=== PATIENT | female | born 1950 | race Caucasian/White ===

== ENCOUNTER 2018-03-11 08:40 | Outpatient (CLI) | payer MEDICARE, BC | END 2018-03-11 08:41 | disposition home or self-care (01) | LOC: BICMAMMO 08:40 | PROVIDERS: ATTEND Internal Medicine Rheumatology | DX: Z13.820 Encounter for screening for osteoporosis (principal); M81.0 Age-related osteoporosis without current pathological fracture | CPT/HCPCS: 77080 ==

== ENCOUNTER 2018-03-28 10:13 | Outpatient (CLI) | payer MEDICARE, BC | END 2018-03-28 10:14 | disposition home or self-care (01) | LOC: BICRAD 10:13 | PROVIDERS: ATTEND Internal Medicine Rheumatology | DX: M17.11 Unilateral primary osteoarthritis, right knee (principal) ==

== ENCOUNTER 2018-06-04 20:54 | Emergency (ER) | payer MEDICARE, BC ==
--- NOTE | 2018-06-04 22:16 | RAD ---
ONE VIEW CHEST: 06/04/18 HISTORY: Low grade fever. Cough x2 weeks. COMPARISON: 09/07/14. FINDINGS: Stable hardware projecting over the spine. Stable rightward curvature of the thoracic spine. Atherosc lerosis of the aorta. Normal cardiac silhouette. Costophrenic angles are clear. Chronic changes in th e lung parenchyma without consolidation or mass. No pneumothorax. Stable left apical pleural thickeni ng. IMPRESSION: 1. Atherosclerosis. 2. No acute cardiopulmonary process. Chronic changes are noted. POS: [facility]
== END 2018-06-04 22:15 | disposition home or self-care (01) ==
LOC: ERS 20:54
DX: J20.9 Acute bronchitis, unspecified (principal); J45.909 Unspecified asthma, uncomplicated
CPT/HCPCS: 71045

== ENCOUNTER 2018-06-05 21:00 | Inpatient (IN) | payer MEDICARE, BC ==
[~2018-06-05 21:00] MED LIST: ISOVUE-370 76%-LOCM 1 ML ONE
[2018-06-05] MEDS ORDERED: methylPREDNISolone Sod Succ/PF 125 MG/2 ML VIAL ONE (21:32)
[2018-06-05] MEDS ORDERED: Water For Inject, Bacteriostat 30 ML ONE (21:32)
[2018-06-05] MEDS ORDERED: Cefepime 2 GM in Sodium Chloride 0.9% 100 ML IVPB SCH (21:45)
[2018-06-05 21:58] LABS: ALT (SGPT) 31 U/L (8-55); AST (SGOT) 52 U/L (5-34); Albumin 3.2 g/dL (3.4-4.8); Alkaline Phosphatase 126 U/L (40-150); Anion Gap 12 mmol/L (10-20); BUN (Urea Nitrogen) 6 mg/dL (9.8-20.1); Bilirubin, Total 3.6 mg/dL (0.2-1.2); Calc. Creatinine Clearance 0 mL/min (70-130); Calcium 8.4 mg/dL (7.8-10.44); Carbon Dioxide 22 mmol/L (23-31); Chloride 98 mmol/L (98-107); Estimated GFR-MDRD 83; Globulin 4.2 g/dL (2.4-3.5); Glucose 121 mg/dL (80-115); Potassium 4.1 mmol/L (3.5-5.1); Protein, Total 7.4 g/dL (6.0-8.3); Sodium 128 mmol/L (136-145)
[2018-06-05 22:00] LABS: #Basophils 0.1 thou/uL (0.0-0.2); #Eosinphils 0.3 thou/uL (0.0-0.7); #Lymphocytes 1.1 thou/uL (1.20-3.40); #Neutrophils 4.6 thou/uL (1.40-6.50); %Eosinophils 4.4 % (0.0-10.0); %Lymphocytes 15.3 % (21.0-51.0); %Monocytes 14.5 % (0.0-10.0); %Neutrophils 64.8 % (42.0-75.0); Hemoglobin 15.1 g/dL (12.0-16.0); Mean Corpuscular HGB CONC 34.5 g/dL (32.0-36.0); Mean Corpuscular Hemoglobin 34.6 pg (27.0-31.0); Mean Platelet Volume 7.8 fL (7.4-10.4); PLT Morphology Comment Appears Decreased; Platelet Count 87 thou/uL (130-400); RBC Distribution Width 13.7 % (11.5-14.5); Red Blood Cell (RBC) Count 4.35 mill/uL (4.20-5.40)
[2018-06-05 22:02] LABS: CKMB 2.2 ng/mL (0-6.6); Troponin I Less than 0.010 ng/mL (< 0.028)
--- NOTE | 2018-06-05 22:25 | RAD ---
CHEST ONE VIEW: History: Diagnosed with bronchitis last night. Pain. Comparison: 06-04-18 FINDINGS: Stable cardiac silhouette. Stable scoliosis. Chronic changes of the lung parenchyma, without consolid ation or mass. No pleural effusion or pneumothorax. Stable thickening of the right apical pleura. IMPRESSION: No acute cardiopulmonary process. No significant interval change. POS: [facility]
[2018-06-05 22:43] LABS: Bilirubin Negative (Negative); Blood, Urine Negative (Negative); Clarity CLEAR (Clear); Glucose, Urine (Dipstick) Negative (Negative); Leukocyte Negative (Negative); Nitrite Negative (Negative); Protein, Urine (Dipstick) Negative (Neg-Trace); Specific Gravity, Urine 1.019 (1.002-1.036); pH, Urine 5.5 (5.0-9.0)
--- NOTE | 2018-06-05 22:54 | CT ---
CT ANGIOGRAM OF THE CHEST: History: Shortness of breath. Diagnosed with bronchitis. Comparison: None. Technique: CT angiogram of the chest was performed in the axial plane. 3D reformatted images are subm itted for interpretation. FINDINGS: No mediastinal mass, lymphadenopathy, or hematoma. Heart size is within normal limits. No pericardial effusion. The thoracic aorta and upper abdominal aorta have a normal caliber. No periaortic fat stra nding. There is nodularity of the liver with perihepatic fluid suggesting cirrhotic change and ascites. Visu alized spleen and adrenal glands are unremarkable. Visualized renal cortices are also unremarkable. The visualized pancreas is grossly unremarkable. There is fluid in the gallbladder fossa. Stable emphysematous changes of the lung parenchyma. No mass or consolidation. Patchy ground glass op acities. 2 mm nodule noted in the right lower lobe. Trachea and central bronchi are patent. Adequate opacification of the pulmonary arterial system to the level of the segmental arteries. No fi lling defects to suggest thromboembolism. IMPRESSION: 1. No evidence of pulmonary artery embolism to the level of the segmental arteries. 2. Emphysematous changes of the lung parenchyma. 3. Probable cirrhotic change of the liver without evidence of perihepatic fluid. There is fluid in th e gallbladder fossa which is nonspecific. If there is concern for cholecystitis consider gallbladder ultrasound. POS: [facility]
[2018-06-06] MEDS ORDERED: Acetaminophen 325 MG TAB PO PRN (01:07)
[2018-06-06] MEDS ORDERED: Ondansetron PF 4 MG/2 ML Vial IVP PRN (01:07)
[2018-06-06 02:13] VITALS: BMI 24.6
[2018-06-06 02:38] LABS: #Lymphocytes 0.8 thou/uL (1.20-3.40); #Monocytes 0.2 thou/uL (0.11-0.59); #Neutrophils 4.3 thou/uL (1.40-6.50); %Basophils 0.2 % (0.0-1.0); %Eosinophils 0.3 % (0.0-10.0); %Lymphocytes 14.4 % (21.0-51.0); %Monocytes 2.8 % (0.0-10.0); %Neutrophils 82.2 % (42.0-75.0); Hemoglobin 14.2 g/dL (12.0-16.0); Mean Corpuscular HGB CONC 34.3 g/dL (32.0-36.0); Mean Corpuscular Hemoglobin 34.3 pg (27.0-31.0); Mean Platelet Volume 7.7 fL (7.4-10.4); Platelet Count 74 thou/uL (130-400); RBC Distribution Width 13.5 % (11.5-14.5); Red Blood Cell (RBC) Count 4.14 mill/uL (4.20-5.40); White Blood Cell (WBC) Count 5.2 thou/uL (4.8-10.8)
[2018-06-06 02:46] LABS: Anion Gap 11 mmol/L (10-20); BUN (Urea Nitrogen) 7 mg/dL (9.8-20.1); Calc. Creatinine Clearance 79 mL/min (70-130); Calcium 8.4 mg/dL (7.8-10.44); Carbon Dioxide 21 mmol/L (23-31); Chloride 102 mmol/L (98-107); Estimated GFR-MDRD 90; Glucose 152 mg/dL (80-115); Potassium 4.1 mmol/L (3.5-5.1); Sodium 130 mmol/L (136-145)
[2018-06-06] MEDS ORDERED: Doxycycline 100 MG in Syringe 0 ML IVPB SCH (09:00)
[2018-06-06] MEDS: cefTRIAXone\\ROCEPHIN 1 GM in Sodium Chloride 0.9% 100 ML IVPB SCH (09:22)
--- NOTE | 2018-06-06 09:23 | HP ---
PRIMARY CARE DOCTOR: Adam Ragland M.D. CODE STATUS: FULL CODE. TIME OF EVALUATION: 01:00 a.m. CHIEF COMPLAINT: Shortness of breath. HISTORY OF PRESENT ILLNESS: This is a 67 years old female patient with past medical history of liver cirrhosis; history of asthma, diagnosed by an forestry extension specialist; esophageal varices; history of hepatitis C, resolved; with cirrhosis ; portal vein thrombosis, no blood thinners due to high risk for bleeding; came to the hospital after had an episode of shortness of breath. The patient has been having these symptoms for the past few days. She came to the ER yesterday , was diagnosed with bronchitis, got the medication and was unable to refill the medications until this morning and she did not get better. Symptoms have been gradually worsening. Symptoms were reported as moderate, associated with cough and some scant sputum production, no clear triggers or alleviating factors. REVIEW OF SYSTEMS: Constitutional: The patient has no fever, chills, generalized weakness. Respiratory: The patient had cough, scant sputum production, shortness of breath. Cardiovascular: No chest pain or palpitation. Gastrointestinal: No nausea, no vomiting, no diarrhea, no abdominal pain. WEIGHT GUESSER: No dizziness, headache, or feeling lightheaded. Genitourinary: No burning with urination. Extremities: Bilateral leg swelling. All other systems were reviewed and negative except for the findings mentioned above. PAST MEDICAL HISTORY: As mentioned in the HPI. FAMILY HISTORY: Reported as negative by the patient. PAST SURGICAL HISTORY: Back surgery, hemorrhoidectomy, right cataract, surgical history of hysterectomy. PSYCHIATRIC HISTORY: No previous psychiatric history. SOCIAL HISTORY: Patient has no smoking history. No alcohol, no drugs. KNOWN ALLERGIES: ZITHROMAX. REPORTED MEDICATIONS: Budesonide, Perforomist, propranolol, ibandronate. PHYSICAL EXAMINATION: VITAL SIGNS: Heart rate 77, O2 saturation 98 on room air, pulse 80, respiratory rate was 20, blood pressure 142/64. GENERAL APPEARANCE: The patient is alert, oriented, and in mild distress due to shortness of breath. HEENT: Eyes, normal conjunctivae. Moist oral mucosa. Eyes, anicteric. NECK: JVD. RESPIRATORY: Bilateral air entry is decreased with scattered wheezing, no rales. Symmetric expansion. CARDIOVASCULAR: Normal rate, regular rhythm. No murmurs or gallop. Bilateral leg edema. ABDOMEN: Soft, mildly distended. Normal bowel sounds. MUSCULOSKELETAL: Baseline range of motion and strength. No tenderness. SKIN: Warm and intact. No pallor, no rash, no redness. Peripheral pulses are present. Capillary refill seems to be intact. NEUROLOGIC: No evidence of any new focal weakness. Baseline speech. Cranial nerves seem to be intact. PSYCHIATRIC: The patient is in good mood, no anxiety, oriented, optimal judgment. IMAGING: EKG was reviewed and discussed with the performing physician from ER. The patient has normal sinus rhythm with a rate of 84 with some PVCs. Chest CT was only positive for emphysema. LABORATORY DATA: Labs are reviewed. The patient has white count of 5.2, hemoglobin 14.2, MCV 100, platelet count 74. D-dimer 4.58. Sodium 130, potassium 4.1, chloride 102, carbon dioxide 21, anion gap 11, BUN 7, creatinine 0.65, GFR 90, glucose 152, calcium 8.4. Beta natriuretic peptide 123.9. Serum total protein 7.4, albumin 3.2, albumin-globulin ratio is 0.8. ASSESSMENT AND PLAN: The patient will be placed in the hospital with the following medical problems. 1. Acute hypoxic respiratory failure. Saturation was below 88 on room air. The patient needing home oxygen to keep saturation above 90, likely due to underlying possible chronic obstructive pulmonary disease versus acute bronchitis with this underlying condition. 2. Possible underlying undiagnosed chronic obstructive pulmonary disease. The patient has emphysema in the CT angio. We will place the patient on nebs, steroids, and antibiotics, reconcile home medications. 3. History of cirrhosis of the liver, this problem is chronic, seems to be compensated, we will reconcile home medications. 4. Hyperglycemia. We will monitor, we will adjust treatment as needed. 5. Hyponatremia. Patient has sodium of 130, this is mild, no need for any acute intervention. We will monitor, we will adjust treatment as needed. 6. Positive D-dimer. CT angio was negative. This is likely secondary to underlying liver disease. 7. Deep venous thrombosis prophylaxis. 8. History of esophageal varices, and therefore, anticoagulation has not been started on this patient for that reason. 9. History of portal vein thrombosis, anticoagulation has been contraindicated by GI after previous EGD has been done, we will continue to monitor. MTDD
--- NOTE | 2018-06-06 15:15 | PDOC.PN ---
- Subjective Encounter Start Date: 06/06/18 Encounter Start Time: 15:14 Ms. Triana was seen today in follow-up of Acue bronchitis. She says she is feeling much better today. She denies cough at this time, but says it is usually at night. - Objective Resuscitation Status: Resuscitation Status FULL:Full Resuscitation MAR Reviewed: Yes Vital Signs & Weight: Vital Signs (12 hours) Temp Pulse Resp BP Pulse Ox 06/06/18 13:59 72 16 06/06/18 10:23 69 14 93 L 06/06/18 08:07 97.8 F 60 16 107/62 93 L 06/06/18 08:00 93 L 06/06/18 06:46 75 14 91 L Weight Weight 134 lb 14.766 oz I&O: 06/05/18 06/06/18 06/07/18 06:59 06:59 06:59 Intake Total 320 Balance 320 Result Diagrams: 06/06/18 02:09 06/06/18 02:09 Phys Exam - Physical Examination HEENT: PERRLA Respiratory: no rales, no rhonchi, wheezing present = occasional wheeze, and rhonchi Cardiovascular: RRR, no significant murmur, no rub Gastrointestinal: soft, non-tender, no distention, positive bowel sounds Musculoskeletal: no edema Dx/Plan (1) Acute bronchitis Code(s): J20.9 - ACUTE BRONCHITIS, UNSPECIFIED Status: Acute (2) Acute respiratory failure with hypoxia Code(s): J96.01 - ACUTE RESPIRATORY FAILURE WITH HYPOXIA Status: Acute (3) Hyponatremia Code(s): E87.1 - HYPO-OSMOLALITY AND HYPONATREMIA Status: Acute (4) Cirrhosis Code(s): K74.60 - UNSPECIFIED CIRRHOSIS OF LIVER Status: Acute - Plan * Acute respiratory failure due to bronchitis- improving- will check her oxygen saturations on room air, and see if she qualifies for oxygen * Probable COPD and Cirrhosis- with no histor of tobacco- she may have alpha-1 antitrypsin deficiency- this can be evaluated as an outpatient * Probable discharge home today. .
[2018-06-06] MEDS: Budesonide 0.25 MG/2 ML NEB NEB SCH (19:15)
[2018-06-06] MEDS: Arformoterol 15 MCG/2 ML NEB NEB SCH (19:18)
[2018-06-07] MEDS: Budesonide 0.25 MG/2 ML NEB NEB SCH (07:13)
[2018-06-07] MEDS: Arformoterol 15 MCG/2 ML NEB NEB SCH (07:27)
[2018-06-07] MEDS ORDERED: predniSONE 20 MG TAB PO SCH (08:00)
[2018-06-07 08:03] VITALS: BP 109/56; TEMP 97.3
[2018-06-07] MEDS ORDERED: Propranolol 10 MG TAB PO SCH (09:00)
[2018-06-07] MEDS: cefTRIAXone\\ROCEPHIN 1 GM in Sodium Chloride 0.9% 100 ML IVPB SCH ×2 (10:43→10:52)
--- NOTE | 2018-06-07 11:41 | PDOC.PN ---
- Subjective Encounter Start Date: 06/07/18 Encounter Start Time: 11:39 Ms. Triana was seen today in follow-up of of bronchitis. She is breathing better, but had a coughing fit last night. - Objective MAR Reviewed: Yes Vital Signs & Weight: Vital Signs (12 hours) Temp Pulse Resp BP Pulse Ox 06/07/18 10:35 93 L 06/07/18 10:33 71 14 06/07/18 08:00 96 06/07/18 07:59 97.3 F L 75 18 109/56 L 96 06/07/18 07:13 80 14 06/07/18 04:36 97.6 F 77 16 101/56 L 92 L 06/07/18 02:06 81 16 06/07/18 01:46 93 L 06/07/18 00:24 97.6 F 81 16 103/54 L 91 L Weight Weight 134 lb 14.766 oz I&O: 06/06/18 06/07/18 06/08/18 06:59 06:59 06:59 Intake Total 320 1490 Balance 320 1490 Result Diagrams: 06/06/18 02:09 06/06/18 02:09 Phys Exam - Physical Examination HEENT: PERRLA Respiratory: no wheezing, no rales, no rhonchi, clear to auscultation bilateral Cardiovascular: RRR, no significant murmur, no rub Gastrointestinal: soft, non-tender, no distention, positive bowel sounds Musculoskeletal: no edema Dx/Plan (1) Acute bronchitis Code(s): J20.9 - ACUTE BRONCHITIS, UNSPECIFIED Status: Acute (2) Acute respiratory failure with hypoxia Code(s): J96.01 - ACUTE RESPIRATORY FAILURE WITH HYPOXIA Status: Acute (3) Hyponatremia Code(s): E87.1 - HYPO-OSMOLALITY AND HYPONATREMIA Status: Acute (4) Cirrhosis Code(s): K74.60 - UNSPECIFIED CIRRHOSIS OF LIVER Status: Acute - Plan * Acute Bronchitis- improving * Her oxygen requirements have improved * She is stable for discharge home..
--- NOTE | 2018-06-07 11:59 | DIS ---
DATE OF ADMISSION: 06/06/2018 DATE OF DISCHARGE: 06/07/2018 PRIMARY CARE PHYSICIAN: Adam Ragland M.D. DISCHARGE DISPOSITION: Home. PRIMARY DISCHARGE DIAGNOSES: 1. Acute respiratory failure with hypoxemia secondary to bronchitis. 2. Acute bronchitis. 3. Hyponatremia, resolved. 4. Probable chronic obstructive pulmonary disease. 5. Cirrhosis. DISCHARGE MEDICATIONS: Include Robitussin-AC 10 mL q.4 hours p.r.n., Vibramycin 100 mg p.o. twice a day #10, propranolol 10 mg every day, Perforomist nebs twice a day and budesonide 0.25 mg nebs twice a day. CODE STATUS: FULL CODE. ALLERGIES: AZITHROMYCIN. HOSPITAL COURSE: Ms. Triana is a pleasant 67-year-old female who presented to the emergency room wi th complaints of shortness of breath as well as cough, primarily at night. She was found to be hypox ic and tachycardic in the emergency room. She also had serum sodium of approximately 128. She was a dmitted and started on IV antibiotics as well as IV steroids and DuoNebs. She improved over the cour se of the next day and a half. She was initially hypoxic on room air, but then was able to maintain an O2 sat above 90% at the time of discharge. She was much improved and subsequently will [facility]. It was noted on CT scan that she had some findings consistent with emphysema. I discussed this with the patient. She has never had a history of smoking. It is also interesting that she has a history of cirrhosis, but she says this is due to hepatitis C. Otherwise, I would consider someth ing like alpha 1 antitrypsin deficiency as a potential cause of her COPD and cirrhosis. Nevertheless , she is currently clinically stable and can follow up with Dr. Ragland in 1-2 weeks.
--- NOTE | 2018-06-11 16:18 | EKG ---
Test Reason : Blood Pressure : / mmHG Vent. Rate : 084 BPM Atrial Rate : 084 BPM P-R Int : 130 ms QRS Dur : 084 ms QT Int : 364 ms P-R-T Axes : 060 -29 051 degrees QTc Int : 430 ms Sinus rhythm with Premature supraventricular complexes Moderate voltage criteria for LVH, may be normal variant Cannot rule out Septal infarct , age undetermined Abnormal ECG Confirmed by ISAIAS JUNIOR ([id number]), content editor DAVID ELDRIDGE ([id number]) on 06/11/2018 4:17:52 PM Referred By: Confirmed By:ISAIAS JUNIOR
== END 2018-06-07 15:10 | disposition home or self-care (01) | DRG 189 ==
LOC: ERS 21:00 → T4-B 23:41
PROVIDERS: ADMIT Hospitalist; ATTEND Hospitalist
DX: J96.01 Acute respiratory failure with hypoxia (principal); J44.0 Chronic obstructive pulmonary disease with (acute) lower respiratory infection; E87.1 Hypo-osmolality and hyponatremia; R73.9 Hyperglycemia, unspecified; J20.9 Acute bronchitis, unspecified; K74.60 Unspecified cirrhosis of liver; Z88.1 Allergy status to other antibiotic agents; Z79.899 Other long term (current) drug therapy
CPT/HCPCS: 36415; 71045; 71275; 80048; 80053; 81003; 82553; 83880; 84484; 85025; 85379; 87040; 93005; 94760; 96365; 96375; J0692; J0696; J2920; J2930; J7050; J7506; J7620; J7626

== ENCOUNTER 2018-10-19 07:21 | Outpatient (CLI) | payer MEDICARE, BC ==
--- NOTE | 2018-10-19 09:20 | ULT ---
ULTRASOUND HEPATIC DOPPLER DUPLEX: DATE: 10/19/2018. HISTORY: A 67-year-old female with: K76.6, portal hypertension. I81, portal vein thrombosis. D69.59, other secondary thrombocytopenia. TECHNIQUE: Alcaraz scale, color flow, and spectral analysis, of liver, spleen, and major blood vessels associated w ith the liver. FINDINGS: Because of body habitus, visualization is limited. Nodular hepatic margins and diffusely coarse hepatic echotexture, representing cirrhosis. Free fluid around the liver, including small amount around the right lobe. Gallbladder distended and with mild mural thickening. This mural thickening could be due to the hepa tocellular disease, and does not necessary indicate acute or chronic cholecystitis. No gallstones identified. Common duct caliber 6 mm. The spleen maintains its normal hilar concavity, but the hilum is lobulated. The measurements on thi s ultrasound are 12.5 x 4 x 3.7 cm, which would not constitute splenomegaly. However, on the CT pulmonary angiogram of 06/05/2018, the spleen did appear to be enlarged. Hepatopetal flow demonstrated in main, right, and left portal veins, with appropriate portal venous D oppler waveforms. Hepatofugal flow demonstrated with appropriate waveforms, in the right, middle, and left hepatic vein s. Pulsatile flow demonstrated in hepatic artery and splenic artery. IMPRESSION: 1. Hepatic cirrhosis. 2. No portal vein thrombosis. Appropriate flow and appropriate waveforms of all major blood vessels associated with the liver. 3. Small volume of ascites. 4. Diffuse thickened gallbladder wall. See above comments. POS: [facility]
== END 2018-10-19 07:22 | disposition home or self-care (01) ==
LOC: BICULT 07:21
PROVIDERS: ATTEND Internal Medicine Hematology & Oncology
DX: K76.6 Portal hypertension (principal); I81 Portal vein thrombosis; D69.59 Other secondary thrombocytopenia; K74.60 Unspecified cirrhosis of liver; R18.8 Other ascites; K82.8 Other specified diseases of gallbladder
CPT/HCPCS: 76705

== ENCOUNTER 2018-10-27 11:55 | Emergency (ER) | payer MEDICARE, BC | END 2018-10-27 13:19 | disposition home or self-care (01) | LOC: ERS 11:55 | DX: J20.9 Acute bronchitis, unspecified (principal); J45.909 Unspecified asthma, uncomplicated; Z79.899 Other long term (current) drug therapy | CPT/HCPCS: 87804; 99283 ==

== ENCOUNTER 2019-01-19 18:24 | Inpatient (IN) | payer MEDICARE, BC ==
[2019-01-19 19:20] LABS: #Eosinphils 0.2 thou/uL (0.0-0.7); #Lymphocytes 1.4 thou/uL (1.20-3.40); #Monocytes 0.6 thou/uL (0.11-0.59); %Basophils 0.3 % (0.0-1.0); %Eosinophils 5.6 % (0.0-10.0); %Lymphocytes 33.2 % (21.0-51.0); %Monocytes 13.7 % (0.0-10.0); %Neutrophils 47.1 % (42.0-75.0); Hemoglobin 14.3 g/dL (12.0-16.0); Mean Corpuscular HGB CONC 32.7 g/dL (32.0-36.0); Mean Corpuscular Hemoglobin 33.7 pg (27.0-31.0); Mean Platelet Volume 8.3 fL (7.4-10.4); Platelet Count 95 thou/uL (130-400); Red Blood Cell (RBC) Count 4.26 mill/uL (4.20-5.40); White Blood Cell (WBC) Count 4.3 thou/uL (4.8-10.8)
[2019-01-19 19:41] LABS: ALT (SGPT) 31 U/L (8-55); AST (SGOT) 41 U/L (5-34); Alkaline Phosphatase 156 U/L (40-150); Anion Gap 10 mmol/L (10-20); BUN (Urea Nitrogen) 10 mg/dL (9.8-20.1); Bilirubin, Total 2.5 mg/dL (0.2-1.2); Calc. Creatinine Clearance 0 mL/min (70-130); Calcium 9.7 mg/dL (7.8-10.44); Carbon Dioxide 26 mmol/L (23-31); Chloride 104 mmol/L (98-107); Estimated GFR-MDRD 71; Globulin 3.7 g/dL (2.4-3.5); Glucose 160 mg/dL (80-115); Lipase 101 U/L (8-78); Protein, Total 6.7 g/dL (6.0-8.3); Sodium 136 mmol/L (136-145)
[2019-01-19 20:51] LABS: Bilirubin Negative (Negative); Blood, Urine Negative (Negative); Clarity Clear (Clear); Glucose, Urine (Dipstick) Normal (Negative); Leukocyte Negative Leu/uL (Negative); Nitrite Negative (Negative); Protein, Urine (Dipstick) Negative (Neg-Trace)
--- NOTE | 2019-01-19 21:47 | ULT ---
RIGHT UPPER QUADRANT ULTRASOUND: 01/19/19 HISTORY: Right upper quadrant pain. FINDINGS: The liver demonstrates coarse echogenicity without definite focal mass or intrahepatic ductal dilatat ion. No shadowing gallstones are seen. There is thickening of the wall of the gallbladder with gallbl adder edema and small amount of pericholecystic fluid. The common duct measures 6 mm in diameter. Th e right kidney is normal. There is a small amount of free fluid adjacent to the superior aspect of th e liver. The auto brake technician reported a positive Zarate's sign. IMPRESSION: The findings are suspicious for acute acalculous cholecystitis. POS: [facility]
[2019-01-19] MEDS ORDERED: Piperacillin/Tazobactam 4.5 GM VIAL ONE (22:54)
[2019-01-19] MEDS ORDERED: Ondansetron PF 4 MG/2 ML Vial IVP PRN (23:25)
[2019-01-19] MEDS ORDERED: Acetaminophen 325 MG TAB PO PRN (23:25)
[2019-01-19] MEDS ORDERED: Ondansetron ODT 4 MG TAB PO PRN (23:25)
[2019-01-19] MEDS ORDERED: PROVENTIL INHALER 6.7 G (200 INHALATIONS) INH PRN (23:29)
[2019-01-20 00:20] VITALS: BMI 22.7
[2019-01-20] MEDS: Sodium Chloride 0.45% 1,000 ML IV SCH ×2 (00:38→22:00)
--- NOTE | 2019-01-20 03:20 | HP ---
CHIEF COMPLAINT: Abdominal pain. HISTORY OF PRESENT ILLNESS: This patient is a 68 yo female, who presented to the emergency department. The patient reports that she was in her usual state of health until this morning about 9 a.m. in the morning, she ate breakfast, subsequently developed some right upper quadrant abdominal pain, which was just below the rib line and slightly medial at times. She also had pain directly through the back as well. She reports the pain was constant. She did eat lunch, did not seem to change her symptoms. She had mild nausea. No vomiting. She presented to the emergency department and while sitting in the waiting room, her pain has essentially resolved. Currently, she is pain free at rest. She still admits to having little tenderness. Said her pain was a 7/10 when she actually arrived here. PAST MEDICAL HISTORY: Notable for; 1. Cirrhosis secondary to hepatitis C. 2. Hepatitis C, which was apparently treated and cured. 3. History of a portal vein thrombosis; however, on followup ultrasound, it apparently had resolved and she never required any anticoagulation. 4. She has a history of asthma, esophageal varices and had some evidence of emphysema on a prior admission based on a CT scan. PAST SURGICAL HISTORY: Back surgery, hemorrhoidectomy, right cataract ectomy with lens implant, surgical hysterectomy. FAMILY HISTORY: Reviewed and reportedly negative per patient. SOCIAL HISTORY: The patient is a nonsmoker, nondrinker, and nondrug user. She is . She is full code and her is her surrogate decision maker. REVIEW OF SYSTEMS: Only notable for arthritis type pain. She does report she has some fairly chronic loose stools and that has been true over the last few days. She had slightly dark stools yesterday. She denies any change in the character of her urine. All other systems were reviewed, all pertinent positives and negatives noted in the history of present illness. ALLERGIES: AZITHROMYCIN. CURRENT MEDICATIONS: 1. Budesonide 0.5 mg/2 mL inhaled b.i.d. 2. Propranolol 10 mg p.o. daily. 3. Ibandronate 150 mg monthly. 4. Albuterol inhaler 2 puffs q.4 hours p.r.n. shortness of breath or wheezing. PHYSICAL EXAMINATION: VITAL SIGNS: BP 137/54, pulse 74, respirations 18, O2 saturations 96% on room air. GENERAL APPEARANCE: Age-appropriate female, in no distress. She is awake, alert, oriented, pleasant, cooperative, generally thin with a very slightly protuberant abdomen. HEENT: PERRL. She has a visible ocular lens implant on the right. She has no OP lesions. She has no scleral icterus. NECK: Supple and symmetric without lymphadenopathy, JVD, or bruits. HEART: Regular with trigeminy, slight 2/6 murmur at the left lower sternal border. LUNGS: Clear to auscultation bilaterally with no wheezes or rales. ABDOMEN: Again is slightly protuberant, is otherwise soft, nondistended or non-tensed. There is tenderness to palpation in the right upper quadrant with mildly positive Zarate sign. EXTREMITIES: No cyanosis, clubbing, or edema. NEUROLOGIC: She appears to move all extremities normally. She has normal cognition. PSYCH: Normal affect and behavior. SKIN: No jaundice. Normal turgor. LABORATORY DATA: White count 4.3, hemoglobin 14.3, platelets 95. Sodium 136, potassium 4.0, chloride is 104, BUN is 10, creatinine 0.8, glucose 160, calcium 9.7, albumin is 2.5, AST is 41, ALT 31, alkaline phosphatase 156, albumin 3.0, lipase is 101. Urinalysis negative. Ultrasound of the abdomen reveals suspicions for acute acalculous cholecystitis with gallbladder wall thickening, gallbladder edema, and small amount of pericholecystic fluid. Common duct is 6 mm and positive sonographic Zarate sign. IMPRESSION AND PLAN: 1. Right upper quadrant abdominal pain with evidence of acalculous cholecystitis on ultrasound. Her total bilirubin is slightly elevated, but it has been elevated in the past. In fact, it was at 3.6 back in May. Her AST is also slightly better than it was in May, so there is nothing new necessarily related to her labs , but certainly her symptoms are somewhat consistent with that. She has received Zosyn here in the emergency room. We will not continue that for now. We will keep her on some gentle fluids. Keep her n.p.o. after midnight. Consult General Surgery to re-evaluate her in the morning pending the result of a HIDA scan. 2. History of cirrhosis, stable. 3. Thrombocytopenia secondary to her long-standing cirrhosis. 4. Asthma. Continue budesonide and bronchodilators. Job ID: [id number] [facility]
[2019-01-20 04:59] LABS: Band 8 % (5-11); Hemoglobin 13.3 g/dL (12.0-16.0); Lymphocytes 31 % (21-51); MDiff Complete? YES; Macrocytosis SLIGHT = 6-15 cells (100X) (0-5/hpf); Mean Corpuscular HGB CONC 32.6 g/dL (32.0-36.0); Mean Corpuscular Hemoglobin 33.6 pg (27.0-31.0); Mean Platelet Volume 8.4 fL (7.4-10.4); Metamyelocyte 1 % (0-0); Monocytes 4 % (0-10); Neutrophil 53 % (42-75); Platelet Count 78 thou/uL (130-400); Platelet Morphology Comment Appears Decreased; RBC Distribution Width 13.8 % (11.5-14.5); Reactive Lymphocytes 3 % (0-10); Red Blood Cell (RBC) Count 3.97 mill/uL (4.20-5.40); White Blood Cell (WBC) Count 4.8 thou/uL (4.8-10.8)
[2019-01-20 05:07] LABS: ALT (SGPT) 28 U/L (8-55); AST (SGOT) 37 U/L (5-34); Albumin 2.7 g/dL (3.4-4.8); Alkaline Phosphatase 132 U/L (40-150); Anion Gap 10 mmol/L (10-20); BUN (Urea Nitrogen) 10 mg/dL (9.8-20.1); Bilirubin, Total 2.3 mg/dL (0.2-1.2); Calc. Creatinine Clearance 66 mL/min (70-130); Calcium 8.8 mg/dL (7.8-10.44); Carbon Dioxide 24 mmol/L (23-31); Chloride 109 mmol/L (98-107); Estimated GFR-MDRD 81; Globulin 3.1 g/dL (2.4-3.5); Glucose 73 mg/dL (80-115); Potassium 3.5 mmol/L (3.5-5.1); Protein, Total 5.8 g/dL (6.0-8.3); Sodium 139 mmol/L (136-145)
[2019-01-20] MEDS: Budesonide 0.5 MG/2 ML NEB INH SCH ×2 (08:11→18:45)
[2019-01-20] MEDS ORDERED: Sodium Chloride 0.65% Nasal 44 ML BOT EA NARE PRN (10:33)
[2019-01-20] MEDS ORDERED: HYDROcodone/Acetaminophen 5/325 mg Tablet PO PRN (10:33)
[2019-01-20] MEDS ORDERED: Cepastat Lozenges 1 LOZ PO PRN (10:33)
[2019-01-20] MEDS ORDERED: Artificial Tears 18 DROP/0.9 ML EA EYE PRN (10:33)
[2019-01-20] MEDS ORDERED: hydrALAZINE 20 MG/ML VIAL SLOW IVP PRN (10:33)
[2019-01-20] MEDS ORDERED: Calcium Carbonate 500 MG ChewTAB PO PRN (10:33)
[2019-01-20] MEDS ORDERED: Loratadine 10 MG TAB PO PRN (10:33)
[2019-01-20] MEDS ORDERED: Bisacodyl 10 MG SUPP PR PRN (10:33)
[2019-01-20] MEDS ORDERED: Diabetic Tussin 200 MG/10 ML UDCUP PO PRN (10:33)
--- NOTE | 2019-01-20 10:33 | PDOC.PN ---
- Subjective Encounter Start Date: 01/20/19 Encounter Start Time: 08:10 Patient seen and examined. pt has RUQ abdominal pain, No overnight events - Objective Resuscitation Status - Order Detail: 01/19/19 23:25 Resuscitation Status Routine Resuscitation Status: FULL: Full Resuscitation MAR Reviewed: Yes Vital Signs & Weight: Vital Signs (12 hours) Temp Pulse Resp BP Pulse Ox 01/20/19 08:11 77 16 01/20/19 07:30 97.9 F 78 14 106/58 L 91 L 01/20/19 06:04 80 146/53 H 01/20/19 03:22 98.2 F 77 18 102/46 L 93 L 01/19/19 23:52 97.9 F 77 16 147/73 H 93 L Weight Weight 124 lb 8 oz I&O: 01/19/19 01/20/19 01/21/19 06:59 06:59 06:59 Intake Total 600 Balance 600 Result Diagrams: 01/20/19 04:15 01/20/19 04:15 Radiology Reviewed by me: Yes (US noted) Phys Exam - Physical Examination Constitutional: NAD HEENT: PERRLA, moist MMs, sclera anicteric Neck: no JVD, supple Respiratory: no wheezing, no rales, no rhonchi Cardiovascular: RRR, no significant murmur, no rub Gastrointestinal: soft, no distention, positive bowel sounds RUQ tenderness Musculoskeletal: no edema, pulses present Neurological: non-focal, normal sensation, moves all 4 limbs Lymphatic: no nodes Psychiatric: normal affect, A&O x 3 Skin: no rash, normal turgor Dx/Plan (1) Acute acalculous cholecystitis Code(s): K81.0 - ACUTE CHOLECYSTITIS Status: Acute (2) Asthma Code(s): J45.909 - UNSPECIFIED ASTHMA, UNCOMPLICATED Status: Chronic (3) Cirrhosis of liver Code(s): K74.60 - UNSPECIFIED CIRRHOSIS OF LIVER Status: Chronic Comment: due to hepatitis C, with portal hypertension (4) Macrocytosis Code(s): D75.89 - OTHER SPECIFIED DISEASES OF BLOOD AND BLOOD-FORMING ORGANS Status: Chronic (5) Thrombocytopenia Code(s): D69.6 - THROMBOCYTOPENIA, UNSPECIFIED Status: Chronic - Plan cont current plan of care * today HIDA scan * GI consulted * will consult general surgery * discussed with * medication reviewed as below * symptomatic treatment. Review of Systems - Review of Systems ENT: negative: Ear Pain, Ear Discharge, Nose Pain, Nose Discharge, Nose Congestion, Mouth Pain, Mouth Swelling, Throat Pain, Throat Swelling, Other Respiratory: negative: Cough, Dry, Shortness of Breath, Hemoptysis, SOB with Excertion, Pleuritic Pain, Sputum, Wheezing Cardiovascular: negative: chest pain, palpitations, orthopnea, paroxysmal nocturnal dyspnea, edema, light headedness, other Gastrointestinal: Abdominal Pain. negative: Nausea, Vomiting, Diarrhea, Constipation, Melena, Hematochezia, Other Genitourinary: negative: Dysuria, Frequency, Incontinence, Hematuria, Retention , Other Musculoskeletal: negative: Neck Pain, Shoulder Pain, Arm Pain, Back Pain, Hand Pain, Leg Pain, Foot Pain, Other Skin: negative: Rash, Lesions, Bruno, Bruising, Other - Medications/Allergies Allergies/Adverse Reactions: Allergies Allergy/AdvReac Type Severity Reaction Status Date / Time azithromycin [From Zithromax] Allergy Verified 06/06/18 01:58 Medications: Current Medications Acetaminophen (Tylenol) 650 mg PO Q4H PRN PRN Reason: Headache/Fever/Mild Pain (1-3) Albuterol Sulfate (Proventil Hfa) 2 puff INH Q6H PRN PRN Reason: SOB &/or Wheezing Budesonide (Pulmicort Neb Solution) 0.5 mg INH BID-RT [facility] Last Admin: 01/20/19 08:11 Dose: 0.5 mg Sodium Chloride (1/2 Normal Saline) 1,000 mls @ 50 mls/hr IV .Q20H [facility] Last Admin: 01/20/19 00:38 Dose: 1,000 mls Ondansetron HCl (Zofran Odt) 4 mg PO Q6H PRN PRN Reason: Nausea/Vomiting Ondansetron HCl (Zofran) 4 mg IVP Q6H PRN PRN Reason: Nausea/Vomiting Propranolol HCl (Inderal) 10 mg PO DAILY [facility]
--- NOTE | 2019-01-20 16:51 | NM ---
HEPATOBILIARY SCAN WITH EJECTION FRACTION: Date: 01/20/19 HISTORY: Abnormal ultrasound that showed gallbladder wall thickening without stones. FINDINGS: Examination was performed using 5 mCi 99m-technetium mebrofenin and 1.1 mg CCK. The liver parenchyma shows normal accumulation of the radiopharmaceutical. Gallbladder activity is se en by approximately 25 minutes. Bowel activity is seen later. No biliary ductal dilatation. The gallb ladder ejection fraction was 52%. IMPRESSION: Unremarkable hepatobiliary scan. POS: [facility]
[2019-01-20] MEDS: Propranolol 10 MG TAB PO SCH (19:32)
--- NOTE | 2019-01-20 19:54 | CON ---
DATE OF CONSULTATION: 01/20/2019 REQUESTING PHYSICIAN: Dr. Richards. REASON FOR CONSULTATION: Right upper quadrant pain and possible cholecystitis. HISTORY OF PRESENT ILLNESS: Kayla Triana is a 68-year-old woman seen in the GI outpatient setting by my colleague, Dr. Bennie Estevez. She also has a liver specialist in [place], Dr. Jones, with whom she follows more regularly. She has a history of cirrhosis secondary to hepatitis C, but completed successful treatment of hepatitis C with Sovaldi and ribavirin in 2013. She does have cirrhosis with portal hypertension and has had banding of esophageal varices and chronic thrombocytopenia. She also has a history of portal vein thrombus, which appears to have resolved without any anticoagulation based on most recent dedicated imaging in October 2018. Her cirrhosis is otherwise stable. She was admitted to the hospital yesterday with the acute onset of severe right upper quadrant pain, which radiated to the back. She says this lasted several hours, but was actually resolving while she was waiting in the emergency department. Laboratory studies were essentially unremarkable. She does have elevation of total bilirubin to 2.3, but this is actually below her baseline. Lipase was only mildly elevated to 101. There was no leukocytosis. An abdominal ultrasound showed gallbladder wall thickening and a small amount of pericholecystic fluid, but a normal common bile duct measuring 6 mm in diameter. Zarate sign was positive and so there was concern for acute acalculous cholecystitis. I note that a HIDA scan was performed earlier today, and this was a normal study. The patient has been evaluated by Dr. Candelaria, who is not planning any surgical intervention. The patient is tolerating a liquid diet at this time without any symptoms. REVIEW OF SYSTEMS: Full review of systems including constitutional, head, eyes, ears, nose, throat, GI, , cardiovascular, respiratory, musculoskeletal, and neurologic systems is negative except as noted in the HPI. PAST MEDICAL HISTORY: 1. Cirrhosis secondary to hepatitis C. 2. Hepatitis C, cured after treatment with Sovaldi and ribavirin in 2013. 3. Portal vein thrombus, resolved on its own based on followup ultrasound in October 2018. 4. Asthma. 5. Esophageal varices, status post banding. 6. Emphysema. 7. Back surgery. 8. Hemorrhoidectomy. 9. Hysterectomy. FAMILY HISTORY: Noncontributory. SOCIAL HISTORY: No smoking, alcohol, or drug use. ALLERGIES: AZITHROMYCIN. OUTPATIENT MEDICATIONS: 1. Budesonide inhaler. 2. Propranolol 10 mg daily. 3. Ibandronate 150 mg monthly. PHYSICAL EXAMINATION: VITAL SIGNS: Temperature 97.8, pulse 76, blood pressure 112/55, and 90% oxygen saturation on room air. GENERAL: A 68-year-old woman, lying in bed comfortably, in no distress. SKIN: No jaundice. No rashes were palpable. HEENT: Eyes, no scleral icterus. Extraocular movements intact. ENT, mucous membranes moist. No oral lesions. LYMPH: No submandibular or supraclavicular lymphadenopathy. THYROID: Nontender to palpation. HEART: Regular rate and rhythm. LUNGS: Clear to auscultation bilaterally. ABDOMEN: Bowel sounds are present. Soft. Some tenderness to palpation in the right upper quadrant, but no guarding or rebound tenderness. EXTREMITIES: No peripheral edema. VESSELS: Radial pulses 2+ bilaterally. NEUROLOGIC: Cranial nerves 2 through 12 intact bilaterally. No focal deficits. LABORATORY STUDIES: Hemoglobin 13.3, MCV 103, WBC 4.8, platelets 78. Sodium 139, potassium 3.5, BUN 10, creatinine 0.71. Total bilirubin 2.3, alkaline phosphatase 132, AST 37, ALT 28, and lipase 101. Urinalysis negative. IMAGING STUDIES: Abdominal ultrasound showed some gallbladder wall thickening and small amount of pericholecystic fluid. No gallstones evident. CBD normal at 6 mm. HIDA scan was a normal study. ASSESSMENT AND PLAN: 1. Right upper quadrant pain, transient, resolved. Her ultrasound was suggestive of possible acalculous cholecystitis, but I note the HIDA scan was normal, which makes this unlikely. Common bile duct is also normal and LFTs are stable. Dr. Candelaria is not planning on any operative intervention and I would agree with this. Certainly, no indication for endoscopic retrograde cholangiopancreatography. The patient is advancing her diet and I would agree with advancing it as tolerated. She is still doing well tomorrow, then I think she could be discharged from the hospital, from a GI perspective. 2. Cirrhosis. This is secondary to hepatitis C, which has been cured following treatment in 2013. This appears stable. She has chronic thrombocytopenia. She thinks she may be coming up due for surveillance esophagogastroduodenoscopy with Dr. Estevez. We will have her followup in the GI Clinic with Dr. Estevez in the next few weeks. She also follows up with Dr. Jones in [place]. Please call back anytime with questions or concerns. Job ID: [id number]
--- NOTE | 2019-01-21 06:55 | CON ---
DATE OF CONSULTATION: REASON FOR CONSULTATION: Abdominal pain. HISTORY OF PRESENT ILLNESS: Ms. Triana is a 68-year-old woman with cirrhosis due to hepatitis C, who had sudden onset of severe right upper quadrant pain radiating to the back the night before her admission, it was unbearable, so she came into the emergency room, but it actually resolved while she was waiting to be seen. She underwent evaluation in the emergency room and was found to have some gallbladder wall thickening and pericholecystic fluid, but normal common bile duct diameter. She reportedly had some tenderness in the area of the gallbladder on the ultrasound and was admitted for possible acute acalculous cholecystitis. She has fairly advanced cirrhosis with esophageal varices, which have been banded by Dr. Estevez. She has a history of portal vein thrombosis, but was not anticoagulated for this and no portal vein thrombosis was seen on her most recent duplex imaging earlier this year. She denies any history of ascites. PAST MEDICAL HISTORY: Hepatitis C, status post treatment; cirrhosis due to hepatitis C; portal vein thrombosis and esophageal varices due to cirrhosis; asthma. PAST SURGICAL HISTORY: Hysterectomy, hemorrhoidectomy, and back surgery. SOCIAL HISTORY: She does not smoke, drink, or use illicit drugs. DRUGS ALLERGIES: She reports an allergy to azithromycin. OUTPATIENT MEDICATIONS: Include budesonide nebulizer, Perforomist nebulizer, and propranolol. She takes Robitussin as needed and albuterol inhaler as needed as well as ibandronate monthly. PHYSICAL EXAMINATION: VITAL SIGNS: The patient is afebrile. Heart rate in the 70s, respirations are 18, 90% to 93% saturated on room air, and blood pressure normal. GENERAL: Reveals a healthy-appearing 68-year-old woman in no acute distress. She is not flushed or toxic. She is not jaundiced or icteric. HEENT: Unremarkable. NECK: Supple without lymphadenopathy or thyroid nodules. HEART: Regularly irregular, with two normal beats and then a pause. She does have a slight systolic murmur, which does not radiate. ABDOMEN: Soft and nondistended. She is not tender to palpation in the subcostal area, but has some slight tenderness in the right lateral location. No palpable gallbladder. No palpable masses. Small umbilical hernia, which is nontender and only partially reducible. EXTREMITIES: Warm and well perfused without edema. NEUROLOGIC: No focal deficits. PSYCHIATRIC: Alert, oriented, and appropriate. LABORATORY DATA: White count is normal. Platelets are slightly low. Bilirubin is 2.5, which is about where it has been in the past. Albumin is 3. Electrolytes are unremarkable. Lipase was very slightly elevated, 101. Ultrasound images were reviewed and I agree with written report. ASSESSMENT: Transient right upper quadrant pain, which resolved after a few hours. The patient is currently pain free. A HIDA scan was obtained which showed normal filling of the gallbladder and a normal ejection fraction with no reproduction of her symptoms. Overall, I think that acalculous cholecystitis is unlikely. I do not recommend surgery in her case and as I feel the risks outweigh the benefits, I started the patient back on a diet and if she tolerates this, she can likely be discharged home with followup with her a p supervisor and liver specialist. Job ID: [id number]
[2019-01-21 07:25] VITALS: BP 109/66; TEMP 97.9
[2019-01-21] MEDS: Budesonide 0.5 MG/2 ML NEB INH SCH (08:19)
[2019-01-21] MEDS: Propranolol 10 MG TAB PO SCH (08:54)
--- NOTE | 2019-01-21 11:13 | DIS ---
DATE OF ADMISSION: 01/20/2019 DATE OF DISCHARGE: 01/21/2019 PRIMARY CARE PHYSICIAN: Dr. Adam Ragland. DISCHARGE DISPOSITION: Home. PRIMARY DISCHARGE DIAGNOSIS: Suspected acute acalculous cholecystitis, resolved. SECONDARY DISCHARGE DIAGNOSES: Thrombocytopenia, macrocytosis, cirrhosis of liver, asthma. PRIMARY PROCEDURE/OPERATION: None. RADIOLOGICAL INVESTIGATION: HIDA scan, normal abdominal ultrasound showed finding suspected for acute acalculous cholecystitis. SIGNIFICANT LABORATORY DATA: Hemoglobin 13.3, MCV 103. Creatinine 0.71, lipase 101. Urinalysis unremarkable. DISCHARGE MEDICATIONS: 1. Budesonide nebulization b.i.d. 2. Perforomist 20 mcg nebulization b.i.d. 3. Inderal 10 mg daily. 4. Guaifenesin 10 mL q.4 hourly p.r.n. CONTRAINDICATION: None. CODE STATUS: Full code. INPATIENT POLICE CHIEF DEPUTY: Dr. Haile and Dr. Candelaria was consulted while in hospital. TEST RESULTS PENDING ON DISCHARGE: None. ALLERGIES: AZITHROMYCIN. DISCHARGE PLAN: Post hospital, the patient will follow up with primary care physician in one week. The patient will follow up with Dr. Atkinson as instructed. HOSPITAL COURSE: A 68-year-old female with above-mentioned medical problem, who was admitted by Dr. Richards. Please see his H and P for further details. The patient was having right upper quadrant pain. In the emergency room, abdominal ultrasound showed finding suggestive of acute acalculous cholecystitis. Subsequently, the patient was admitted to the hospital. We did HIDA scan and HIDA scan was normal. During this admission, shipping/receiving manager and General surgery evaluated this patient and they recommended to continue current treatment plan. She did not require any surgical intervention during this admission. She will follow up with her shipping/receiving manager. The patient's abdominal pain completely resolved. She remained afebrile while in hospital. She did not require any new medication upon discharge. She will continue all her previous medication. I have seen and examined the patient bedside today. Plan of care discussed with the patient's and the patient. OBJECTIVE: VITAL SIGNS: Currently, temperature 97.9, pulse 76, respiratory rate 14, saturation 96% on room air, blood pressure 109/66. Weight 124 pounds. GENERAL: The patient is currently alert, awake, no obvious acute distress. HEENT: Head; normocephalic, atraumatic. LUNGS: Clear to auscultation without any rhonchi or rales. CARDIAC: S1 and S2, regular without any murmur. ABDOMEN: Soft and benign. EXTREMITIES: No edema. NEUROLOGIC: Nonfocal examination. Overall, the patient is medically stable for discharge today. Job ID: [id number]
== END 2019-01-21 11:15 | disposition home or self-care (01) | DRG 445 ==
LOC: ERS 18:24 → SURG A 01-20 00:04
PROVIDERS: ADMIT Internal Medicine; ATTEND Internal Medicine
DX: K81.0 Acute cholecystitis (principal); K76.6 Portal hypertension; K74.60 Unspecified cirrhosis of liver; J45.909 Unspecified asthma, uncomplicated; D69.6 Thrombocytopenia, unspecified; K74.69 Other cirrhosis of liver; D75.89 Other specified diseases of blood and blood-forming organs; J43.9 Emphysema, unspecified; Z90.710 Acquired absence of both cervix and uterus; Z79.51 Long term (current) use of inhaled steroids; Z88.1 Allergy status to other antibiotic agents
CPT/HCPCS: 36415; 76705; 78227; 80053; 81003; 83690; 85025; 94640; 96365; A9537; J2543; J7620; J7626

== ENCOUNTER 2019-08-31 08:25 | Outpatient (CLI) | payer MEDICARE, BC ==
--- NOTE | 2019-08-31 09:17 | ULT ---
Exam: Hepatic ultrasound with vascular duplex and color and spectral Doppler imaging: COMPARISON: 10/19/2018 HISTORY: Cirrhosis FINDINGS: Coarse nodular liver consistent with history of cirrhosis. Marked abnormal gallbladder wall thickenin g up to 0.9 cm. Common bile duct 0.7 cm. Visualized pancreas and right kidney are unremarkable. No abnormal right upper quadrant fluid collection. Vascular duplex with color and spectral Doppler imaging. Antegrade hepatic and portal venous flow. IMPRESSION: Very markedly thickened gallbladder wall. Evidence for cirrhosis. Common bile duct 0.7 cm. Antegrade hepatic and portal venous flow.
== END 2019-08-31 08:26 | disposition home or self-care (01) ==
LOC: BICULT 08:25
PROVIDERS: ATTEND Physician Assistant Medical
DX: K74.60 Unspecified cirrhosis of liver (principal); I85.00 Esophageal varices without bleeding; K82.8 Other specified diseases of gallbladder
CPT/HCPCS: 76705

== ENCOUNTER 2019-12-13 17:31 | Inpatient (IN) | payer MEDICARE, BC, OTHER ==
[~2019-12-13 17:31] MED LIST changes: -ISOVUE-370 76%-LOCM 1 ML ONE; +Iopamidol-370 76% 500 ML 1 ML ONE
[2019-12-13] MEDS ORDERED: Ondansetron PF 4 MG/2 ML Vial ONE (18:12)
[2019-12-13] MEDS ORDERED: Acetaminophen 500 MG TAB ONE (18:12)
[2019-12-13 18:37] LABS: Mean Corpuscular HGB CONC 32.3 g/dL (32.0-36.0); Mean Corpuscular Hemoglobin 36.2 pg (27.0-31.0); Mean Platelet Volume 9.9 fL (7.4-10.4); Platelet Count 81 thou/uL (130-400); RBC Distribution Width 14.4 % (11.5-14.5); Red Blood Cell (RBC) Count 3.88 mill/uL (4.20-5.40); White Blood Cell (WBC) Count 6.6 thou/uL (4.8-10.8)
[2019-12-13 18:39] LABS: Bacteria/HPF None Seen HPF (None Seen); Bilirubin 1+ (Negative); Blood, Urine 2+ (Negative); Clarity Turbid (Clear); Glucose, Urine (Dipstick) Normal (Negative); Leukocyte Negative Leu/uL (Negative); Nitrite Negative (Negative); Protein, Urine (Dipstick) 20 mg/dL (Neg-Trace); WBC/HPF 0-3 HPF (0-3)
[2019-12-13 18:46] LABS: Calcium Oxalate Crystals 4+ HPF (None Seen)
[2019-12-13 18:47] LABS: Mucous/LPF 1+ LPF (<2+); RBC/HPF 0-3 HPF (0-3); Squamous Epithelial 0-3 HPF (0-3)
[2019-12-13 18:51] LABS: ALT (SGPT) 28 U/L (8-55); AST (SGOT) 59 U/L (5-34); Alkaline Phosphatase 192 U/L (40-110); Anion Gap 10 mmol/L (10-20); BUN (Urea Nitrogen) 10 mg/dL (9.8-20.1); Bilirubin, Total 4.6 mg/dL (0.2-1.2); Calc. Creatinine Clearance 0 mL/min (70-130); Calcium 8.6 mg/dL (7.8-10.44); Carbon Dioxide 27 mmol/L (23-31); Chloride 104 mmol/L (98-107); Estimated GFR-MDRD 74; Globulin 3.8 g/dL (2.4-3.5); Potassium 3.6 mmol/L (3.5-5.1); Protein, Total 6.8 g/dL (6.0-8.3); Sodium 137 mmol/L (136-145)
[2019-12-13 18:55] LABS: Glucose 59 mg/dL (83-110)
--- NOTE | 2019-12-13 19:30 | RAD ---
CHEST ONE VIEW: 12/13/19 HISTORY: Cough. COMPARISON: Radiograph 2018. FINDINGS: Similar appearance of the scoliotic hardware of the thoracic spine. Small left effusion. No confluent air space consolidation, pneumothorax. Heart size is enlarged. Dense calcifications of the aorta. IMPRESSION: Small left effusion and left lower lobe adjacent atelectasis. POS: HOME
[2019-12-13] MEDS ORDERED: Cefepime 2 GM VIAL ONE (19:44)
--- NOTE | 2019-12-13 20:38 | CT ---
CT ABDOMEN AND PELVIS WITH CONTRAST: 12/13/19 HISTORY: Abdominal pain. COMPARISON: None. FINDINGS: Some atelectatic changes in the left lung base with small left effusion. Severe hepatic cirrhosis. Mi ld gallbladder wall thickening likely congestive in nature. The common bile duct measures up to 9 mm. There appears to be debris within the distal common bile duct which measures also 9 mm. There appear s to be a diverticulum second portion duodenum. The spleen is enlarged. Partial thrombosis of the ma in portal vein with thrombus extending to the left portal vein. Mild cavernous transformation. Mildly prominent pancreatic duct without overt dilatation. Small volume ascites in the pelvis. Some small volume pericolic gutter fluid. There is a hernia at th e umbilicus containing omentum with small amount of fluid within the hernia sac with the hernia neck measuring 2 cm in size. The celiac trunk and superior mesenteric arteries are patent. The aortic cont our is nonaneurysmal. There is suture material at the rectum. Congestive changes of the ascending colon. The appendix is no rmal. Mild splenic varices. No hydronephrosis. There appears to be relatively high grade narrowing of the o stia of the superior mesenteric artery although its evaluation is limited due to the high volume calc ific plaque. Advanced degenerative changes of L5-S1. Scoliosis hardware is intact. IMPRESSION: 1. Severe hepatic cirrhosis with portal venous partial thrombosis. This is a chronic thrombosis as there is peripheral calcifications. 2. Congestive changes of the gallbladder and ascending colon. 3. Small volume ascites as well as well as third spacing of fluid. 4. High grade narrowing of the origin of the SMA, although this evaluation is limited due to the adjacent calcific plaque. 5. Splenomegaly and mild splenic varices as well as some gastric varices. 6. Mildly distended common bile duct containing internal debris. Recommend correlation with LFT s. If this is abnormally elevated, ERCP/MRCP may be beneficial. 7. Mild hyperenhancement of the proximal small bowel mucosal can be seen with enteritis. POS: HOME
--- NOTE | 2019-12-13 20:48 | PDOC.FPRHP ---
- History of Present Illness Chief Complaint: Chills History of Present Illness: Pt is a 69 yo F with pmh GERD,Esophageal Varices, Asthma, and Cirrhosis with resolved Hep C who presents with severe sepsis. Pt reports for the last week having some right sided back pain. Reports having some chills the last few days. Reports has been taking her fever daily and had no fever. Reports having some dry heaving the last few days. Pt denies any SOB. Reports having chronic cough that has been going on for awhile. Denies any productive cough. Pt denies any dizziness, lightheadness or vision changes. Pt states BP usually runs on lower side. Pt reports diarrhea but this is chronic from cirrhosis. Denies any blood in her stool. Denies any chest pain or palpitations. Denies any LE swelling. Denies any swelling in abdomen. She does report saw urgent care last week and was given a diuretic but only took for a few days. Pt denies any urinary sx's. Denies any burning when peeing. Pt came in today when just feeling worse and back pain worsening. ED Course: Given 3 L NS. Given Levaquin and cefepime - Allergies/Adverse Reactions Allergies Allergy/AdvReac Type Severity Reaction Status Date / Time azithromycin [From Zithromax] Allergy Verified 10/02/19 08:36 - Home Medications Medication Instructions Recorded Confirmed Type Budesonide 0.25 mg NEB BID 02/11/16 01/20/19 History Formoterol Fumarate [Perforomist] 20 mcg NEB BID 02/11/16 01/20/19 History Propranolol HCl 10 mg PO DAILY 02/11/16 01/20/19 History guaiFENesin/Codeine Phosphate 10 ml PO Q4HR PRN #50 ml 06/07/18 01/20/19 Rx [Robitussin AC] - History PMHx: Hep C- Resolved, GERD, Asthma, Cirrhosis, Esophageal Varices, Hx of Portal Vein Thrombosis, Unsure asthma PSHx: Hemorrhoidectomy, Back Surgery 2/2 scoliosis, R and L Cataract Removal, Hysterectomy FHx: Noncontributory. Social: Lives at home with spouse. Denies alcohol, tobacco, or recreational drug use. - Review of Systems General: reports: fever/chills. denies: weight/appetite/sleep changes, night sweats, fatigue Eyes: denies: eye pain, vision changes ENT: denies: nasal congestion, rhinorrhea Respiratory: denies: cough, congestion, shortness of breath Cardiovascular: denies: chest pain, edema, orthopnea Gastrointestinal: reports: nausea (reports dry heaving.), abdominal pain ( Reports more RUQ but more right back pain.). denies: vomiting, diarrhea, constipation Genitourinary: denies: incontinence, dysuria, polyuria, discharge Skin: denies: rashes, lesions, jaundice Musculoskeletal: reports: pain (pain in right back.). denies: stiffness, swelling Neurological: denies: numbness, seizure Psychological: denies: anxiety, depression - Vital signs BP: 176/67 HR: 85 RR: 16 Tmax: 98.7 Pox: 94% on RA Wt: 53.52 kg - Physical Exam Constitutional: NAD, awake, alert and oriented, well developed HEENT: normocephalic and atraumatic, grossly normal vision, grossly normal hearing -HEENT: conjunctiva mildly jaundiced Neck: supple, FROM, trachea midline, no JVD Heart: RRR, normal S1/S2, no murmurs/rubs/gallops, pulses present, no edema Lungs: no respiratory distress, good air movement, no wheezing, no retractions -Lungs: Some mild rales noted on right side. Abdomen: non-tender, bowel sounds present -Abdomen: Belly is moderate to severly distended. Pt is NTTP. Some fluid wave noted. Zarate sign negative. Heel tap negative. McBurney negative. Musculoskeletal: ROM grossly normal Neurological: no focal deficit, normal sensation Skin: no rash/lesions -Skin: Pt skin mildly jaundiced Heme/Lymphatic: no unusual bruising or bleeding, no purpura Psychiatric: normal mood and affect, good judgment and insight, intact recent and remote memory FMR H&P: Results - Labs Result Diagrams: 12/13/19 18:17 12/13/19 18:17 Lab results: WBC 6.6 thou/uL (4.8-10.8) 12/13/19 18:17 Hgb 14.0 g/dL (12.0-16.0) 12/13/19 18:17 Hct 43.4 % (36.0-47.0) 12/13/19 18:17 MCV 112.0 fL (78.0-98.0) H 12/13/19 18:17 Plt Count 81 thou/uL (130-400) L 12/13/19 18:17 Sodium 137 mmol/L (136-145) 12/13/19 18:17 Potassium 3.6 mmol/L (3.5-5.1) 12/13/19 18:17 Chloride 104 mmol/L (98-107) 12/13/19 18:17 Carbon Dioxide 27 mmol/L (23-31) 12/13/19 18:17 BUN 10 mg/dL (9.8-20.1) 12/13/19 18:17 Creatinine 0.77 mg/dL (0.6-1.1) 12/13/19 18:17 Glucose 59 mg/dL (83-110) L* 12/13/19 18:17 Lactic Acid 2.6 mmol/L (0.5-2.2) H 12/13/19 18:17 Calcium 8.6 mg/dL (7.8-10.44) 12/13/19 18:17 Total Bilirubin 4.6 mg/dL (0.2-1.2) H 12/13/19 18:17 AST 59 U/L (5-34) H 12/13/19 18:17 ALT 28 U/L (8-55) 12/13/19 18:17 Alkaline Phosphatase 192 U/L (40-110) H 12/13/19 18:17 Serum Total Protein 6.8 g/dL (6.0-8.3) 12/13/19 18:17 Albumin 3.0 g/dL (3.4-4.8) L 12/13/19 18:17 Urine Ketones Trace mg/dL (Negative) A 12/13/19 18:15 Urine Blood 2+ (Negative) A 12/13/19 18:15 Urine Nitrite Negative (Negative) 12/13/19 18:15 Ur Leukocyte Esterase Negative Matthew/uL (Negative) 12/13/19 18:15 Urine RBC 0-3 HPF (0-3) 12/13/19 18:15 Urine WBC 0-3 HPF (0-3) 12/13/19 18:15 Ur Squamous Epith Cells 0-3 HPF (0-3) 12/13/19 18:15 Urine Bacteria None Seen HPF (None Seen) 12/13/19 18:15 - Radiology Interpretation CT scan - abdomen Status: image reviewed by me, report reviewed by me Additional comment: 1. severe hepatic cirrhosis w/ portal venous partial thrombosis. This is a chronic thrombosis as there is peripheral calcifications. 2.Congestive changes of the gallbladder and ascending colon. 3. Small volume ascites as well as well as third spacing of luid 4. High grade narrowing of the origin of the SMA, although this evaluation is limited due to the adjacent calcific plaque. 5. Splenomegaly and mild splenic varices as well as some gastric varices. 6. Mildly distended common bile duct containing internal debris. Recommended correlation w/ LFTs. If abnormaly elevated a ERCP/MRCP may be beneficial. 7. Mild hyperenhancement of the proximal small bowel mucosal can be seen with enteritis. Chest x-ray Status: image reviewed by me, report reviewed by me Additional comment: Small left effusion and left lower lobe adjacent atelectasis FMR H&P: A/P - Plan #Sepsis 2/2 likely PNA vs Gallbladder/Cirrhosis pathology -Temp elevated to 102 and pt tachypnic w/ RR in 20's -CXR and CT findings described above. Pt NTTP in abdomen. Unlikely SBP -Will get RUQ US. Consider consult for GI in morning. -Blood and Urine cx obtained -COVID swab pending. Ferritin and LDH ordered -LA 2.6->1.6. Resolved. -Given 3 L NS bolus. Continue maintenance fluids for now. -Continue Cefepime and Levquin for broad spectrum coverage. #Cirrhosis -PT/INR ordered. -Pt Bili elevated to 4.[address] findings per above. RUQ US pending. May consider further imaging and GI consult -Continue to monitor Daily CMP's #Hyperbilirubinemia -Plan per above in cirrhosis #Hx Asthma/Chronic Cough -Pt seeing maintenance worker swimming pool at this time. Was told does not have asthma -Continued home meds -Duonebs as needed for SOB. #Hypotension Holding home propranolol for varices and thrombosis as BP low. Giving mild fluids. #Hypoglycemia -BG mildly low. Will check BG daily with hypoglycemia protocol ordered. DVT ppx: SCD's GERD: Tums Dispo: Will await culture results and further imaging results. Likely consider GI in AM. Continue gentle fluids with abdominal distension for pressure supports. FMR H&P: Upper Level - Plan Date/Time: 12/13/192047 I, [], have evaluated this patient and agree with findings/plan as outlined by engineering intern resident. Pertinent changes/additions are listed here. Addendum - Attending - Attending Attestation Date/Time: 12/13/192251 I personally evaluated the patient and discussed the management with Dr. Page I agree with the History, Examination, Assessment and Plan documented above with any addition or exceptions noted below -69 yo F with h/o GERD,esophageal varices, Asthma, and Cirrhosis with resolved Hep C who presents with severe sepsis. Pt reports for the last week having some right sided back pain. Reports having some chills the last few days. Reports has been taking her fever daily and had no fever. Reports having some dry heaving the last few days. Pt denies any SOB. Reports having chronic cough that has been going on for awhile. Denies any productive cough. Pt denies any dizziness, lightheadness or vision changes. PMH/PSH/Meds/SH reviewed and agree with resident's documentation. Afebrile VSS Exam repeated by me and agree with resident's findings. Labs: WBC=6.6, Lactic acid=2.6 ->1.8, CXR- (preliminary)- RLL infiltrate; CT abd- severe cirrhosis A/P : 1) Sepsis secondary to pneumonia - Admit to medical. Continue abx. Blood culture pending. COVID swab collected. 2) Cirrhosis - no abdominal tenderness; low suspicion for SBP. Will obtain abd USG to evaluate GB and for ascites.
[2019-12-13 21:16] LABS: #Eosinphils 0.1 thou/uL (0.0-0.7); #Lymphocytes 1.1 thou/uL (1.20-3.40); #Monocytes 0.8 thou/uL (0.11-0.59); #Neutrophils 4.6 thou/uL (1.40-6.50); %Basophils 0.5 % (0.0-1.0); %Eosinophils 1.7 % (0.0-10.0); %Lymphocytes 17.1 % (21.0-51.0); %Monocytes 11.4 % (0.0-10.0); %Neutrophils 69.3 % (42.0-75.0)
[2019-12-13 21:34] LABS: Lactic Acid 1.8 mmol/L (0.5-2.2)
[2019-12-13] MEDS ORDERED: Acetaminophen 650 MG Suppository PR PRN (21:52)
[2019-12-13] MEDS ORDERED: Calcium Carbonate 500 MG ChewTAB PO PRN (21:52)
[2019-12-13] MEDS ORDERED: Ondansetron ODT 4 MG TAB PO PRN (21:52)
[2019-12-13] MEDS ORDERED: Ondansetron PF 4 MG/2 ML Vial IVP PRN (21:52)
[2019-12-13] MEDS ORDERED: Dextrose 5% in Water 1,000 ML IV PRN (21:56)
[2019-12-13] MEDS ORDERED: Dextrose 50% Abboject 50 ML SYRINGE SLOW IVP PRN (21:56)
[2019-12-13] MEDS ORDERED: Albumin 25% 25 GM/100 ML BOT IVPB SCH (22:40)
[2019-12-13 22:45] LABS: INR-International Normal Ratio 1.7; Prothrombin Time 19.6 sec (12.0-14.7)
[2019-12-13 22:46] LABS: PTT 36.9 sec (22.9-36.1)
[2019-12-14] MEDS: Lactated Ringer's 1,000 ML IV SCH ×3 (02:00→19:10)
[2019-12-14 02:14] LABS: Legionella Urinary Ag Negative (Negative); Strep pneumo Urine Ag NEGATIVE (NEGATIVE)
[2019-12-14] MEDS ORDERED: Albuterol 200 PUFF (6.7GM INHALER) INH PRN (02:41)
[2019-12-14] MEDS: Mometasone 100 MCG/PUFF (1 INHALER) INH SCH ×2 (05:49→18:45)
[2019-12-14 05:57] LABS: ALT (SGPT) 19 U/L (8-55); AST (SGOT) 45 U/L (5-34); Albumin 2.8 g/dL (3.4-4.8); Alkaline Phosphatase 108 U/L (40-110); Anion Gap 12 mmol/L (10-20); BUN (Urea Nitrogen) 11 mg/dL (9.8-20.1); Bilirubin, Total 4.8 mg/dL (0.2-1.2); Calc. Creatinine Clearance 57 mL/min (70-130); Calcium 7.6 mg/dL (7.8-10.44); Carbon Dioxide 19 mmol/L (23-31); Chloride 110 mmol/L (98-107); Estimated GFR-MDRD 73; Globulin 2.8 g/dL (2.4-3.5); Glucose 123 mg/dL (83-110); Potassium 3.5 mmol/L (3.5-5.1); Protein, Total 5.6 g/dL (6.0-8.3); Sodium 137 mmol/L (136-145)
[2019-12-14 06:08] LABS: #Eosinphils 0.1 thou/uL (0.0-0.7); #Lymphocytes 0.9 thou/uL (1.20-3.40); #Monocytes 0.7 thou/uL (0.11-0.59); %Basophils 0.6 % (0.0-1.0); %Eosinophils 1.4 % (0.0-10.0); %Lymphocytes 16.2 % (21.0-51.0); %Monocytes 12.2 % (0.0-10.0); %Neutrophils 69.7 % (42.0-75.0); Hemoglobin 11.3 g/dL (12.0-16.0); Mean Corpuscular HGB CONC 34.5 g/dL (32.0-36.0); Mean Corpuscular Hemoglobin 38.3 pg (27.0-31.0); Mean Platelet Volume 11.1 fL (7.4-10.4); Platelet Count 44 thou/uL (130-400); Platelet Morphology Comment Appears Decreased; RBC Distribution Width 14.3 % (11.5-14.5); Red Blood Cell (RBC) Count 2.95 mill/uL (4.20-5.40); White Blood Cell (WBC) Count 5.7 thou/uL (4.8-10.8)
[2019-12-14] MEDS ORDERED: Budesonide 0.25 MG/2 ML NEB NEB SCH ×2 (06:30→09:00)
[2019-12-14] MEDS ORDERED: Arformoterol 15 MCG/2 ML NEB NEB SCH (06:30)
[2019-12-14] MEDS ORDERED: Cefepime 2 GM in Sodium Chloride 0.9% 100 ML IVPB SCH (08:00)
--- NOTE | 2019-12-14 08:22 | PDOC.FM ---
- Subjective Subjective: Patient reports her lower right back pain has improved. Denies chest pain or palpitations. States she is hungry this morning. Denies abdominal pain. Denies mid right sided back pain this morning. - Objective Vital Signs & Weight: Vital Signs (12 hours) Temp Pulse Resp BP Pulse Ox 12/14/19 04:02 98.6 F 94 20 115/57 L 93 L 12/14/19 00:49 97.2 F L 82 24 H 101/51 L 97 12/14/19 00:30 97 Weight Weight 54.885 kg I&O: 12/13/19 12/14/19 12/15/19 06:59 06:59 06:59 Intake Total 790 Output Total 480 Balance 310 Result Diagrams: 12/14/19 04:55 12/14/19 04:55 Phys Exam - Physical Examination Constitutional: NAD HEENT: moist MMs jaundiced, no scleral icterus appreciated Neck: no nodes, supple Respiratory: no wheezing decreased breath sounds Right lung base irregularly irregular rhythm, 1/6 systolic murmur Gastrointestinal: soft, positive bowel sounds RUQ TTP, no guarding; abdominal ascites present Musculoskeletal: no edema, pulses present Neurological: non-focal, moves all 4 limbs Psychiatric: normal affect, A&O x 3 Skin: normal turgor, cap refill <2 seconds Dx/Plan (1) Elevated bilirubin Code(s): R17 - UNSPECIFIED JAUNDICE Status: Acute (2) Sepsis Code(s): A41.9 - SEPSIS, UNSPECIFIED ORGANISM Status: Acute (3) Cirrhosis of liver Code(s): K74.60 - UNSPECIFIED CIRRHOSIS OF LIVER Status: Chronic (4) Thrombocytopenia Code(s): D69.6 - THROMBOCYTOPENIA, UNSPECIFIED Status: Chronic (5) Esophageal varices Code(s): I85.00 - ESOPHAGEAL VARICES WITHOUT BLEEDING Status: Chronic (6) Hx of hepatitis C Code(s): Z86.19 - PERSONAL HISTORY OF OTHER INFECTIOUS AND PARASITIC DISEASES Status: Chronic (7) Portal vein thrombosis Code(s): I81 - PORTAL VEIN THROMBOSIS Status: Chronic - Plan Plan: #Covid PUI - Due to fever/tachypnea; pt denies SOB - Covid swab pending - LDH and ferrritin elevated #Sepsis 2/2 GB pathology vs PNA -T 102.2, RR in 20's -Elevated bili 4.6, AST 59 -CXR shows L effusion, small, LL atelectasis -Blood and Urine cx obtained -Covid swab as above -ED: 3 L NS, cefepime and levaquin. -Continue cefepime and levaquin; added flagyl this AM -LA 2.6->1.6 -Given 3 L NS bolus, s/p albumin -Slow IVF LR @ 70 #RUQ pain, possible Moderate acute cholangitis - +Zarate's sign on exam this morning - Fever, elevated bili 4.6, hypoalbuminemia - Added metronidazole this AM. Continue cefepime and levaquin for possible PNA as above - RUQ US pending - PT npo for possible ERCP vs other intervention - Pt sees Dr. Haile outpatient, plan to consult GI this morning. Appreciate recommendations. #Severe hepatic Cirrhosis 2/2 cured Hep C (cured 2013) #Chronic portal venous partial thrombosis #Splenomegaly, mild splenic varices, gastric varices -PT 19.6, INR 1.7, thrombocytopenia -Pt Bili elevated to 4.6 -Pt follows with Dr. Haile and Dr. Jones in [place] #Thrombocytopenia, chronic -appears chronic -SCDs, hold anticoagulation at this time #Hyperbilirubinemia -as above #Irregularly irregular heart rhythm -EKG pending #Hx Chronic Cough -Pt seeing tile layer supervisor at this time. Per her chart, hx of emphysema. Continued home meds -Duonebs PRN for SOB #Hypotension, improved -Holding home propranolol for varices and thrombosis as BP low. Giving mild fluids. -s/p albumin #Hypoglycemia -BG mildly low. Will check BG daily with hypoglycemia protocol ordered. #High grade narrowing SMA -Seen on CT; Pt denies abdominal pain with eating Diet: NPO IVF: LR @ 70 DVT ppx: SCD's GERD: Tums Code status: Full PCP: CC Dispo: Covid swab pending. RUQ pending, plan to consult GI this morning. Patient NPO for possible intervention. Continue antibiotics and gentle IV fluids. LOS >48 hrs. Ubaldo Marcus PGY2 Addendum - Attending - Attending Attestation Date/Time: 12/14/19 4266 I personally evaluated the patient and discussed the management with Dr. Marcus. I agree with the History, Examination, Assessment and Plan documented above with any addition or exceptions noted below. BCx 2/2 ecoli. Concern for ascending cholangitis. GI consulted. VSS. Continue abx. COVID negative.
[2019-12-14] MEDS: metroNIDAZOLE 500 MG in Premix Bag 1 BAG IVPB SCH ×2 (08:34→15:49)
[2019-12-14] MEDS: Cefepime 2 GM in Sodium Chloride 0.9% 100 ML IVPB SCH ×2 (08:34→20:59)
[2019-12-14] MEDS ORDERED: Prevnar 13-Val Conj/PF 0.5 ML SYRINGE IM ONE (09:00)
--- NOTE | 2019-12-14 09:59 | ULT ---
RIGHT UPPER QUADRANT ULTRASOUND: Date: 12/14/2019 HISTORY: Right-sided abdominal pain, distention of abdomen, jaundice, nausea, elevated bilirubin, hepatitis C, cirrhosis, chronic portal vein thrombosis, and sepsis. FINDINGS: The liver has a lobulated appearance consistent with cirrhosis. No definite focal mass or abnormal bi liary ductal dilatation is seen. No shadowing gallstones are seen. The gallbladder is distended with pericholecystic fluid. The gallbladder wall is thickened, measuring 4.0 mm. The common bile duct bonifacio ures 8.0 mm in diameter. The right kidney is normal. The visualized portions of the pancreas are unre markable. There is free fluid in the right upper quadrant. Incidental note is made of a right-sided p leural effusions. IMPRESSION: 1. Right pleural effusion. 2. Cirrhosis of liver. 3. Ascites. 4. Gallbladder wall thickening without gallstones. 5. Dilated common bile duct. 6. Algebra Tutor reported a positive Zarate's sign. POS: [facility]
[2019-12-14 11:06] LABS: SARS-CoV-2 MS2 Positive; SARS-CoV-2 N Gene Negative; SARS-CoV-2 S Gene Negative; SARS-CoV-2 orf1ab Negative
--- NOTE | 2019-12-14 12:50 | PDOC.BPN ---
- Brief Progress Note 1/2 blood cultures show Gram negative rods, E. coli. Dx: E. Coli Bacteremia Continue cefepime 2g BID. Awaiting results of culture and GI recommendations for likely cholangitis
[2019-12-14] MEDS: Albumin 25% 25 GM/100 ML BOT IVPB SCH (17:19)
[2019-12-14] MEDS: Albuterol Sulfate 2.5 mg/3 ml Neb NEB PRN ×2 (18:44→23:42)
--- NOTE | 2019-12-14 18:56 | CON ---
DATE OF CONSULTATION: 12/14/2019 REASON FOR CONSULT: I was asked to see this patient by Dr. Meghna Riggins for possible ascending cholangitis. HISTORY OF PRESENT ILLNESS: This man is a pleasant 69-year-old female with cirrhosis from prior hepatitis C. She ultimately cleared that virus with treatment back in 2013. She has had development of mild ascites, cirrhosis. She has had banding of previous esophageal varices. She has had portal vein thrombosis which does come and go. She was actually in the hospital last year with some right upper quadrant pain going into the back and there was concern for possible biliary sources. HIDA scan was negative and she did have chronic edema of the gallbladder and abdomen and even the bowel, which was felt to be related to her portal hypertension. Ultimately, it was decided not to proceed with cholecystectomy in light of her severe liver disease and portal hypertension. There was no elevated bilirubin or signs of obstruction of biliary tree to indicate a need for ERCP at that time and she ultimately was discharged home. She has followed up with us intermittently for hepatoma screening. She sees Dr. Jones in [place]. She actually missed an appointment there in October secondary to the COVID-19 epidemic. Her last interventions endoscopically with Dr. Haile were in February of 2019 when she had EGD to follow up on varices and she had a few colon polyps removed as well. This admission, she presented yesterday at 2300 with mild hypotension with systolic pressures in the 80s to 90s over 40s, pulse in the 80s and she spiked a temperature of 102.2. She came in for back pain, but also admission notes note that she has been sick for 3 to 4 days with nausea and dry heaves and a few episodes of loose bowel as well as some right-sided back pain and flank pain. This is low on the right side she states. She also reports she had fever for 3 days at home and taken some Motrin. Here, she was given hydration, had cultures drawn and started on Levaquin and cefepime in the emergency room as well as given some albumin as well and a liter of saline. LABORATORY DATA: Notable for white count of 6.6 and a platelet count of 81,000, hemoglobin of 14. She had 69% segs, no bands were noted. Her INR was 1.7, so her comp met profile was notable for normal electrolytes, BUN and creatinine of 10 and 0.7. Her glucose was down at 50. Her bilirubin was 4.6, it had been 4.4 back on 11/29, but typically runs in the 2 to 3 range. Her AST and ALT were up at 59 and 28, normal range for her and alkaline phosphatase was 192, back and fluctuating anywhere from 108 to 202 over the past year and a half. Her lipase was checked today and it was normal. Her blood cultures ended up showing E. coli. COVID test was negative. Urinalysis showed no overt bacteria and she had no urinary symptoms. IMAGING STUDIES: Revealed a right effusion, cirrhosis, ascites, gallbladder wall thickening without gallstones, dilated common bile duct to [address] showed sludge and debris in the distal bile duct and some predominance of the pancreatic duct and common bile duct. Partial thrombus in the main portal vein was noted again and umbilical hernia with small amount of free fluid in hernia sac of 2 cm diameter noted and also congestion changes in the ascending colon, mild splenic varices and stenosis of the superior mesenteric artery. The radiologist specifically felt there were stones or debris in the distal common bile duct. ASSESSMENT: This is a 69-year-old female with history of cirrhosis which has been from hepatitis C, is in remission, but she has advanced disease, portal hypertensive changes of previous varices, now has been admitted with gram-negative bacteremia with E. coli and imaging studies suggestive of possible cholangitis with some symptoms of nausea and vomiting over the past couple days and some right-sided back pain. She was in this hospital about a year ago with some right upper quadrant pain, but no overt signs of choledocholithiasis or biliary obstruction at that time. The differential diagnosis would include a mild cholangitis for her entire presentation. The possibility of bacteremia secondary to some other GI source such as SBP would be a consideration, although she has minimal ascites on her imaging studies on admission, has not had this in the past. With her nausea, vomiting, upper abdominal pain, and the CT scan findings as well as the change in those findings from last year, I think that we probably need to address this, this is most likely an ascending cholangitis. She is at very high risk for cholecystectomy. I think we should proceed with an ERCP and if we find a source of infection there, will then go ahead and clear and leave it back. I think she would be at very high risk of decompensation of her hepatic function with cholecystectomy and at this time has no overt right upper quadrant tenderness. She seems responding well to antibiotics. PLAN: ERCP tomorrow. Risks, benefits, possible complications, bleeding, perforation, reaction to medication, aspiration, bleeding as well as pancreatitis were all discussed with the patient as well as the indications. We will plan to proceed. Job ID: [id number]
[2019-12-14] MEDS: Acetaminophen 325 MG TAB PO PRN (19:09)
[2019-12-15] MEDS: Albumin 25% 25 GM/100 ML BOT IVPB SCH ×3 (00:20→17:03)
[2019-12-15] MEDS: metroNIDAZOLE 500 MG in Premix Bag 1 BAG IVPB SCH ×2 (00:20→08:44)
[2019-12-15] MEDS: Acetaminophen 325 MG TAB PO PRN (00:33)
[2019-12-15] MEDS ORDERED: Melatonin 3 MG TAB PO PRN (00:58)
[2019-12-15 06:55] LABS: INR-International Normal Ratio 1.7; PTT 41.7 sec (22.9-36.1); Prothrombin Time 20.1 sec (12.0-14.7)
[2019-12-15 06:58] LABS: ALT (SGPT) 22 U/L (8-55); AST (SGOT) 51 U/L (5-34); Albumin 3.7 g/dL (3.4-4.8); Alkaline Phosphatase 77 U/L (40-110); Anion Gap 15 mmol/L (10-20); BUN (Urea Nitrogen) 14 mg/dL (9.8-20.1); Bilirubin, Total 5.4 mg/dL (0.2-1.2); Calc. Creatinine Clearance 51 mL/min (70-130); Calcium 8.6 mg/dL (7.8-10.44); Carbon Dioxide 18 mmol/L (23-31); Chloride 108 mmol/L (98-107); Estimated GFR-MDRD 63; Globulin 2.8 g/dL (2.4-3.5); Glucose 99 mg/dL (83-110); Potassium 3.8 mmol/L (3.5-5.1); Protein, Total 6.5 g/dL (6.0-8.3); Sodium 137 mmol/L (136-145)
[2019-12-15 07:06] LABS: #Eosinphils 0.1 thou/uL (0.0-0.7); #Lymphocytes 0.9 thou/uL (1.20-3.40); #Monocytes 0.9 thou/uL (0.11-0.59); #Neutrophils 3.9 thou/uL (1.40-6.50); %Basophils 0.5 % (0.0-1.0); %Eosinophils 1.7 % (0.0-10.0); %Lymphocytes 16.2 % (21.0-51.0); %Monocytes 14.8 % (0.0-10.0); %Neutrophils 66.8 % (42.0-75.0); Hemoglobin 10.9 g/dL (12.0-16.0); Mean Corpuscular HGB CONC 32.1 g/dL (32.0-36.0); Mean Corpuscular Hemoglobin 36.4 pg (27.0-31.0); Mean Platelet Volume 11.4 fL (7.4-10.4); Platelet Count 38 thou/uL (130-400); RBC Distribution Width 14.6 % (11.5-14.5); Red Blood Cell (RBC) Count 2.98 mill/uL (4.20-5.40); White Blood Cell (WBC) Count 5.8 thou/uL (4.8-10.8)
[2019-12-15 07:09] LABS: MDiff Complete? YES
[2019-12-15] MEDS: Albuterol Sulfate 2.5 mg/3 ml Neb NEB PRN (07:39)
[2019-12-15] MEDS: Mometasone 100 MCG/PUFF (1 INHALER) INH SCH ×2 (07:39→18:31)
[2019-12-15 08:55] LABS: Troponin I 0.169 ng/mL (< 0.028)
[2019-12-15] MEDS ORDERED: Hydrochlorothiazide 25 MG TAB PO SCH (09:00)
--- NOTE | 2019-12-15 09:18 | PDOC.FM ---
- Subjective Subjective: Patient states that she is not feeling well this morning, feels like she cannot take a deep breath. Reports an occasional L shoulder pain, reports occasional chest pain associated with deep inspiration. She is hungry and excited to eat later today. - Objective Vital Signs & Weight: Vital Signs (12 hours) Temp Pulse Resp BP BP Pulse Ox 12/15/19 07:50 97.8 F 74 14 106/52 L 95 12/15/19 07:39 76 94 L 12/15/19 05:50 75 22 H 99/61 95 12/15/19 04:30 97.5 F L 71 18 88/50 L 100 12/15/19 00:40 97.9 F 81 14 97/58 L 92 L 12/14/19 23:42 78 18 93 L Weight Admit Weight 54.885 kg Weight 54.885 kg I&O: 12/14/19 12/15/19 12/16/19 06:59 06:59 06:59 Intake Total 790 800 Output Total 480 Balance 310 800 Result Diagrams: 12/15/19 13:10 12/15/19 13:10 Phys Exam - Physical Examination Constitutional: NAD Jaundiced HEENT: moist MMs Respiratory: no wheezing, clear to auscultation bilateral Cardiovascular: RRR 1/6 systolic murmur Gastrointestinal: soft, non-tender, no distention Musculoskeletal: no edema, pulses present Neurological: non-focal, moves all 4 limbs Psychiatric: normal affect, A&O x 3 Skin: cap refill <2 seconds Deviation from normal: Jaundiced Dx/Plan (1) Elevated bilirubin Code(s): R17 - UNSPECIFIED JAUNDICE Status: Acute (2) Sepsis Code(s): A41.9 - SEPSIS, UNSPECIFIED ORGANISM Status: Acute (3) Cirrhosis of liver Code(s): K74.60 - UNSPECIFIED CIRRHOSIS OF LIVER Status: Chronic (4) Thrombocytopenia Code(s): D69.6 - THROMBOCYTOPENIA, UNSPECIFIED Status: Chronic (5) Esophageal varices Code(s): I85.00 - ESOPHAGEAL VARICES WITHOUT BLEEDING Status: Chronic (6) Hx of hepatitis C Code(s): Z86.19 - PERSONAL HISTORY OF OTHER INFECTIOUS AND PARASITIC DISEASES Status: Chronic (7) Portal vein thrombosis Code(s): I81 - PORTAL VEIN THROMBOSIS Status: Chronic (8) Bacteremia Code(s): R78.81 - BACTEREMIA Status: Acute - Plan Plan: #E. coli Bacteremia #Sepsis likely 2/2 Moderate acute ascending cholangitis - Fever, +Edi sign, Jaundice - Continue Cefepime and Flagyll - Dr. Atkinson, GI consulted; ERCP to be performed today -Not a good candidate for cholecystectomy due to comorbidities -Pt sees Dr. Haile outpatient - Bl cx sensitivities pending #Occasional chest pain #QT prolongation #Nonspecific ST changes -QTc >500 on EKG overnight -Stopped PRN zofran, stopped levaquin. -Trending trops, first trop indeterminate -Transfer to Telemetry #Possible PNA -CXR shows L effusion, small, LL atelectasis -RR 20s, could be due to sepsis -Pt covered for pneumonia by cefepime; stopped levaquin due to QT prolongation -Started on 2L BNC overnight, sats dropped to 80s when ambulating -Covid negative #Severe hepatic Cirrhosis 2/2 cured Hep C (cured 2013) #Chronic portal venous partial thrombosis #Splenomegaly, mild splenic varices, gastric varices -PT increased to 20.1, INR 1.7. T bili increased to 5.4. AST increased to 51. -Pt follows with Dr. Haile outpatient, and Dr. 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 Per her chart, hx of emphysema. Continued home meds -Duonebs PRN for SOB #Hypotension, improved -Holding home propranolol for varices and thrombosis as BP low. Giving mild fluids. -continue to monitor #Hypoglycemia, resolved #High grade narrowing SMA -Seen on CT; Pt denies abdominal pain with eating Diet: NPO IVF: LR @ 70 DVT ppx: SCD's GERD: Tums Code status: Full PCP: CC Dispo: Continue IVF and antibiotics, ERCP to be performed today with Dr. Atkinson. Transferring to telemetry for prolonged QT. LOS >48 hrs. Ubaldo Marcus, PGY2 Addendum - Attending - Attending Attestation Date/Time: 12/15/19 1650 I personally evaluated the patient and discussed the management with Dr. Marcus. I agree with the History, Examination, Assessment and Plan documented above with any addition or exceptions noted below. ERCP today. She had some issues coming out of anesthesia and is requiring bipap. bicarb down trending over last several days. Will start on bicarb gtt. Continue cefepime for E-coli bacteremia. Awaiting GI and pulm recs. Trend LFT and INR/PT. Repeating ABG. With the uptrending in her bilirubin and INR I suspect her liver failure may be decompensating.
--- NOTE | 2019-12-15 09:18 | PDOC.BPN ---
- Brief Progress Note Patient had irregular rhythm noted by nursing overnight. Pt also had some occasional chest discomfort with deep inspiration. EKG showed prolonged QTc of 549. Trending a troponin. Do not give QT prolonging agents. Holding zofran. After ERCP this morning, will monitor her on telemetry.
[2019-12-15] MEDS ORDERED: Indomethacin 50 MG SUPP ONE (10:07)
[2019-12-15] MEDS ORDERED: Iopamidol 50 ML FS ONE (10:07)
[2019-12-15] MEDS ORDERED: Fentanyl 100 MCG/2 ML VIAL ONE (10:16)
[2019-12-15] MEDS ORDERED: Albumin 5% 250 ML ONE (10:47)
[2019-12-15] MEDS: Cefepime 2 GM in Sodium Chloride 0.9% 100 ML IVPB SCH ×2 (11:11→20:49)
[2019-12-15] MEDS ORDERED: SUGAMMADEX SODIUM 200 MG/2 ML VIAL ONE (11:21)
[2019-12-15] MEDS ORDERED: Ketamine 50 MG/ML (10ML VIAL) ONE (11:46)
[2019-12-15] MEDS ORDERED: Albuterol Sulfate 1.25 MG/3 ML NEB ONE ×2 (11:53→11:54)
[2019-12-15 12:18] LABS: Actual Bicarbonate (HCO3a) 11.2 mEq/L (22-28); Base Excess (BEa) -14.2 mEq/L (-2.0 to +3.0); Calcium, Ionized 1.11 mmol/L (1.12-1.30); Hemoglobin (Hb) 11.5 g/dL (12.0-16.0); O2 Tension (PaO2), arterial 89.2 mmHg (> 70.0); Potassium - ABG Lab 4.07 mmol/L (3.70-5.30); pH, Arterial 7.26 (7.35-7.45)
--- NOTE | 2019-12-15 12:22 | RAD ---
RADIOGRAPH CHEST 1 VIEW: DATE: 12/15/2019 TIME: 12 9:00 PM HISTORY: 69-year-old female with cough COMPARISON: 12/13/2019 FINDINGS: Progression of changes at left lung base, with now dense consolidation at left base and complete silh ouetting of left hemidiaphragm.. Continued blunting of left hemidiaphragm. New finding of blunting of contralateral right lateral costophrenic angle. Beckwith rods in the thoracic and lumbar spine treating dextroscoliosis of thoracic spine. Diffusel y prominent interstitial markings. No pneumothorax. IMPRESSION: 1) new consolidation at left lower lobe base could represent pneumonia. 2) small left pleural effusion and new small right pleural effusion
--- NOTE | 2019-12-15 12:34 | RAD ---
ERCP: DATE: HISTORY: Stone removal ERCP. COMPARISON: Ultrasound prior day. FINDINGS: Two fluoroscopic images obtained. There appears to be a balloon sweep through the common bile duct. IMPRESSION: Fluoroscopy for procedural purposes. POS: HOME
--- NOTE | 2019-12-15 12:36 | OP ---
DATE OF PROCEDURE: 12/15/2019 PREPROCEDURE DIAGNOSES: 1. Gram-negative bacteremia with Escherichia coli. 2. Bump in liver function tests. 3. Right-sided abdominal pain, possible concern for ascending cholangitis, improved. POSTPROCEDURE DIAGNOSES: 1. No overt signs of ascending cholangitis grossly. 2. No stones in the bile duct or filling of gallbladder on IOC. 3. Periampullary diverticula may be responsible for the appearance of distal bile duct on her CT. 4. Cannot rule out the possibility of a small amount of sludge and debris in the bile duct that passed with sphincterotomy, but no large stones were seen. 5. Paucity of intrahepatic bile ducts consistent with history of cirrhosis. PROCEDURE PERFORMED: Endoscopic retrograde cholangiopancreatography with sphincterotomy and sweeping of the duct with 12 mm balloon. ANESTHESIA: General endotracheal anesthesia. RECOMMENDATIONS: 1. Continue antibiotics directed at her E coli infection. 2. Can stop metronidazole. 3. It is always possible that SBP was the source of her initial infection. 4. Would watch renal function closely for issues of hepatorenal syndrome. 5. Would continue IV albumin q.8 hours for 24 more hours. We will follow along with you during this hospitalization. DESCRIPTION OF PROCEDURE: After the patient was informed of the risks, benefits, and possible complications of endoscopy including perforation, reaction to medication, aspiration, informed consent was obtained. The patient was brought to the endoscopy suite, where she was sedated in gradual fashion. Once she was comfortable, a bite block was placed and she was intubated and placed in prone position and placed on the fluoroscopy table. Side-viewing duodenoscope was advanced through the esophagus, stomach, second and third portions of duodenum. No overt large varices were seen. The stomach was noted to be normal. The ampulla was brought into view and the ampulla was on the saddle of a large periampullary diverticulum. There was no evidence of pus coming from the ampulla. Cannulation was obtained freely. There was a slight injection of the pancreatic duct. This limited the cannulation with the wire that was performed at common bile duct and a cholangiogram was obtained. There was filling of the gallbladder and cystic duct and intrahepatic ducts were thinned consistent with her history of cirrhosis. There were no overt filling defects. With regard to the history and concern for ascending cholangitis, a small sphincterotomy was performed and then the duct was swept x4 with a 12 mm balloon. This was about a 9 to 10 mm common bile duct. No overt large stones were passed. Occlusion cholangiogram was negative for filling defects. There was spontaneous drainage of bile both endoscopically and radiographically. The scope was removed. The patient tolerated the procedure well without complications. Job ID: [id number]
[2019-12-15 13:30] LABS: CO2 Tension 25.7 mmHg (35.0-45.0); Puncture Site LR
[2019-12-15] MEDS ORDERED: PROPOFOL 200 MG/20 ML VIAL ONE (13:32)
[2019-12-15] MEDS ORDERED: PHENYLEPHRINE-NS 100 MCG/ML 10 ML SYRINGE ONE (13:32)
[2019-12-15] MEDS ORDERED: Lidocaine 1% PF 5 ML VIAL ONE (13:32)
[2019-12-15] MEDS ORDERED: Rocuronium Bromide 10 MG/ML (10ML VIAL) ONE (13:32)
[2019-12-15 13:33] LABS: ALV-art Gradient 449.075 (0-20)
--- NOTE | 2019-12-15 13:52 | PRG ---
DATE OF SERVICE: 12/15/2019 SUBJECTIVE: Ms. Triana has been extubated, but required BiPAP and ketamine as she was combative. This was after ERCP. Stable vital signs with the procedure, but remained tachypneic and there was concern for need for re-intubation, placed on BiPAP. She is doing better now. Anesthesia recommends she go to the ICU for further resuscitation. OBJECTIVE: VITAL SIGNS: 139/67 blood pressure, pulse 99, and n O2 saturation 98%. No fever. GENERAL: She is somewhat somnolent, but is arousable. LUNGS: Clear with decreased breath sounds at bases. ABDOMEN: Slightly protuberant. No shifting dullness or fluid wave. EXTREMITIES: Trace edema. LABORATORY DATA: From this morning: White count was 5.8, hemoglobin 10.9, platelet count 38,000, and 66% neutrophils. INR was 1.7 this morning. Sodium was 137, potassium 3.8, BUN and creatinine 14 and 0.8, AST 51, ALT 22, bilirubin 5.4, and albumin 3.7. Lipase 47 yesterday. Urine was negative on admission. The COVID was negative. Blood cultures are positive for E coli. ASSESSMENT: 1. Escherichia coli sepsis. 2. Slight decompensation of respiratory status after endoscopic retrograde cholangiopancreatography. 3. Endoscopic retrograde cholangiopancreatography did not show any overt evidence of ascending cholangitis or gross evidence, but this still is possibly a differential diagnosis as would be spontaneous bacterial peritonitis. RECOMMENDATIONS: 1. Continue broad-spectrum antibiotics. 2. Strict in's and out's with Horan placement. 3. Strict monitoring of respiratory status in the ICU as she is on BiPAP now. Pulmonary Critical Care consult. 4. Albumin 25 g IV q.8. 5. Hold diuretics for now. 6. We will repeat all labs now and again in the morning. 7. Dr. Treviño will be covering over the week from GI perspective. Findings were discussed with family practice admitting service. Call has been put in for ICU and critical care physicians and I have discussed these findings with the patient's . Job ID: [id number]
[2019-12-15 14:05] LABS: #Lymphocytes 0.8 thou/uL (1.20-3.40); #Monocytes 1.4 thou/uL (0.11-0.59); #Neutrophils 12.1 thou/uL (1.40-6.50); %Basophils 0.1 % (0.0-1.0); %Eosinophils 0.3 % (0.0-10.0); %Lymphocytes 5.2 % (21.0-51.0); %Monocytes 9.7 % (0.0-10.0); %Neutrophils 84.6 % (42.0-75.0); Hemoglobin 10.7 g/dL (12.0-16.0); Mean Corpuscular HGB CONC 31.5 g/dL (32.0-36.0); Mean Corpuscular Hemoglobin 36.2 pg (27.0-31.0); Mean Platelet Volume 10.2 fL (7.4-10.4); Platelet Count 37 thou/uL (130-400); RBC Distribution Width 14.9 % (11.5-14.5); Red Blood Cell (RBC) Count 2.96 mill/uL (4.20-5.40); White Blood Cell (WBC) Count 14.3 thou/uL (4.8-10.8)
[2019-12-15 14:08] LABS: INR-International Normal Ratio 2.2
[2019-12-15 14:46] LABS: Lactic Acid 7.3 mmol/L (0.5-2.2)
[2019-12-15 14:49] LABS: ALT (SGPT) 18 U/L (8-55); AST (SGOT) 48 U/L (5-34); Albumin 3.9 g/dL (3.4-4.8); Alkaline Phosphatase 67 U/L (40-110); Anion Gap 20 mmol/L (10-20); BUN (Urea Nitrogen) 17 mg/dL (9.8-20.1); Bilirubin, Total 6.9 mg/dL (0.2-1.2); Calc. Creatinine Clearance 43 mL/min (70-130); Calcium 8.2 mg/dL (7.8-10.44); Carbon Dioxide 13 mmol/L (23-31); Chloride 109 mmol/L (98-107); Estimated GFR-MDRD 52; Globulin 2.3 g/dL (2.4-3.5); Glucose 98 mg/dL (83-110); Lipase 116 U/L (8-78); Potassium 4.4 mmol/L (3.5-5.1); Protein, Total 6.2 g/dL (6.0-8.3); Sodium 138 mmol/L (136-145)
[2019-12-15 14:51] LABS: CKMB 5.6 ng/mL (0-6.6)
[2019-12-15 14:52] LABS: Troponin I 0.166 ng/mL (< 0.028)
[2019-12-15] MEDS ORDERED: Acetaminophen 325 MG TAB PO PRN (15:26)
[2019-12-15] MEDS: Sodium Bicarbonate 150 MEQ in Dextrose 5% in Water 1,000 ML IV SCH (15:40)
[2019-12-15] MEDS: Ondansetron PF 4 MG/2 ML Vial IVP PRN (18:26)
[2019-12-15 18:30] LABS: Lactic Acid 7.7 mmol/L (0.5-2.2)
[2019-12-15] MEDS ORDERED: Albuterol Sulfate 2.5 mg/3 ml Neb NEB SCH (18:30)
--- NOTE | 2019-12-15 22:19 | CON ---
DATE OF CONSULTATION: HISTORY OF PRESENT ILLNESS: This is a 69-year-old female with congenital kyphoscoliosis, who was seeing a local physician, recently retired. She presented to the hospital here several days ago with symptoms of sepsis syndrome apparently. She underwent ERCP today and post procedure, she was having issues with hypotension and respiratory distress. She was placed on BiPAP and transferred to the ICU at the bedside states that patient has never smoked or drank. Hepatitis C has been followed by doctors out of [place] and locally here, probably secondary to previous transfusion apparently. At the time when she was admitted, she had 3 to 4 days of nausea and loose bowels. She has had a gradual decline in her health according to the with difficulty ambulating. No prior history of known TB, pneumonia or bronchial asthma. She had cough four years ago after she had treatment for hep C, has been seeing a local domestic housekeeper, been given some breathing treatments twice a day. PAST MEDICAL HISTORY: Possible asthma, hep C, GI bleed, varices. PAST SURGICAL HISTORY: Hemorrhoid, cataract, hysterectomy, rods in the back. SOCIAL HISTORY: Alcohol, none. Tobacco, none. HOME MEDICATIONS: Includes: 1. Albuterol sulfate. 2. Inderal 10. 3. Perforomist 20. 4. Budesonide 0.25 twice a day. ALLERGIES: ZITHROMAX. SOCIAL AND FAMILY HISTORY: Unremarkable. REVIEW OF SYSTEMS: Ten-point negative. PHYSICAL EXAMINATION: GENERAL: She is awake, alert, and responsive. VITAL SIGNS: BiPAP sats pulse 80, respiratory rate 18, blood pressure 120/80. CHEST: Decreased breath sounds. No wheezing. CARDIAC: Normal S1, S2. No gallops. ABDOMEN: Soft. LABORATORY DATA: X-ray shows left retrocardiac pneumonia. Small pleural effusion, right side. PO2 of 89, pCO2 of 25, pH 7.26. INR is 2.2. White count 59384, H and H 10 and 30, platelet count is low at 37,000. Lytes were normal. Lactic acid 7.3, total bilirubin is 6.9. BNP is 1214. ASSESSMENT: 1. Escherichia coli sepsis presumed secondary to cholangitis. 2. Pneumonia on x-ray. 3. Kyphoscoliosis, status post mildred to the back. 4. Severe thrombocytopenia. I agree with present antibiotic. Maxipime and Levaquin should be adequate for Escherichia coli. Schedule neb treatments initiated. Continue slow hydration. 5. Echo is being ordered to assess her cardiac function. She is a full code as per family. 6. Pulmonary Critical Care will follow while in the ICU. 70 minutes consultation note, 50 minutes direct patient care. Job ID: [id number]
[2019-12-16 00:12] LABS: Lactic Acid 7.7 mmol/L (0.5-2.2)
[2019-12-16] MEDS: Albumin 25% 25 GM/100 ML BOT IVPB SCH ×4 (00:23→21:47)
[2019-12-16] MEDS: Sodium Bicarbonate 150 MEQ in Dextrose 5% in Water 1,000 ML IV SCH ×3 (00:23→17:43)
[2019-12-16] MEDS ORDERED: Sodium Chloride 0.9% 500 ML IV SCH ×2 (00:30→04:30)
[2019-12-16] MEDS: Ondansetron PF 4 MG/2 ML Vial IVP PRN (03:30)
[2019-12-16 03:58] LABS: INR-International Normal Ratio 3.2; Prothrombin Time 32.6 sec (12.0-14.7)
[2019-12-16 04:14] LABS: Mean Corpuscular HGB CONC 32.5 g/dL (32.0-36.0); Mean Corpuscular Hemoglobin 36.3 pg (27.0-31.0); Mean Platelet Volume 12.9 fL (7.4-10.4); Platelet Count 20 thou/uL (130-400); RBC Distribution Width 14.8 % (11.5-14.5); Red Blood Cell (RBC) Count 2.47 mill/uL (4.20-5.40)
[2019-12-16 04:15] LABS: #Lymphocytes 0.6 thou/uL (1.20-3.40); #Monocytes 0.7 thou/uL (0.11-0.59); #Neutrophils 5.7 thou/uL (1.40-6.50); %Basophils 0.1 % (0.0-1.0); %Eosinophils 0.1 % (0.0-10.0); %Lymphocytes 8.8 % (21.0-51.0); %Monocytes 10.5 % (0.0-10.0); %Neutrophils 80.5 % (42.0-75.0); MDiff Complete? YES; Macrocytosis SLIGHT = 6-15 cells (100X) (0-5/hpf); Platelet Morphology Comment Appears Decreased
[2019-12-16 04:20] LABS: ALT (SGPT) 22 U/L (8-55); AST (SGOT) 54 U/L (5-34); Albumin 4.1 g/dL (3.4-4.8); Alkaline Phosphatase 49 U/L (40-110); Anion Gap 16 mmol/L (10-20); BUN (Urea Nitrogen) 24 mg/dL (9.8-20.1); Bilirubin, Total 7.1 mg/dL (0.2-1.2); Calc. Creatinine Clearance 32 mL/min (70-130); Calcium 7.8 mg/dL (7.8-10.44); Carbon Dioxide 20 mmol/L (23-31); Chloride 105 mmol/L (98-107); Estimated GFR-MDRD 37; Globulin 1.8 g/dL (2.4-3.5); Glucose 196 mg/dL (83-110); Lipase 736 U/L (8-78); Potassium 3.4 mmol/L (3.5-5.1); Protein, Total 5.9 g/dL (6.0-8.3); Sodium 138 mmol/L (136-145)
--- NOTE | 2019-12-16 07:09 | PDOC.FM ---
- Subjective Subjective: Patient was reportedly hypotensive with worsening laboratories overnight. Remained stable on Bipap from respiratory standpoint. Received 2 500mL fluid boluses for BP support. Also received antiemetics 2/2 bilious N/V. Reports she feels better this AM. Says she still has abdominal pain that comes and goes. - Objective MAR Reviewed: Yes Vital Signs & Weight: Vital Signs (12 hours) Temp Pulse Resp Pulse Ox 12/16/19 05:00 96.8 F L 12/16/19 02:33 82 21 H 91 L 12/16/19 00:44 78 26 H 93 L 12/16/19 00:00 97.9 F 12/15/19 22:34 77 25 H 94 L 12/15/19 20:00 97.3 F L 96 Weight Admit Weight 54.885 kg Weight 64 kg Most Recent Monitor Data Heart Rate from ECG 79 NIBP 89/52 NIBP BP-Mean 64 Respiration from ECG 17 SpO2 96 I&O: 12/15/19 12/16/19 12/17/19 06:59 06:59 06:59 Intake Total 800 2912 Output Total 331 Balance 800 2581 Result Diagrams: 12/16/19 03:17 12/16/19 03:17 Phys Exam - Physical Examination Constitutional: NAD HEENT: moist MMs left conjunctival hemorrhage noted Neck: supple, full ROM Respiratory: no wheezing, no rales coarse inspiratory breath sounds in B/L upper lung harris Cardiovascular: RRR, no significant murmur Gastrointestinal: non-tender, positive bowel sounds moderate distension noted Musculoskeletal: no edema Neurological: non-focal, moves all 4 limbs Psychiatric: normal affect, A&O x 3 Skin: no rash, normal turgor Deviation from normal: diffuse purpura 2/2 lines & blood draws noted Dx/Plan (1) Lactic acidosis Code(s): E87.2 - ACIDOSIS Status: Acute (2) Bacteremia Code(s): R78.81 - BACTEREMIA Status: Acute (3) Elevated bilirubin Code(s): R17 - UNSPECIFIED JAUNDICE Status: Acute (4) Sepsis Code(s): A41.9 - SEPSIS, UNSPECIFIED ORGANISM Status: Acute Qualifiers: Sepsis type: Escherichia coli Sepsis acute organ dysfunction status: with acute organ dysfunction (5) Esophageal varices Code(s): I85.00 - ESOPHAGEAL VARICES WITHOUT BLEEDING Status: Chronic Qualifiers: Esophageal varices bleeding: without bleeding (6) Hx of hepatitis C Code(s): Z86.19 - PERSONAL HISTORY OF OTHER INFECTIOUS AND PARASITIC DISEASES Status: Chronic (7) Portal vein thrombosis Code(s): I81 - PORTAL VEIN THROMBOSIS Status: Chronic (8) Asthma Code(s): J45.909 - UNSPECIFIED ASTHMA, UNCOMPLICATED Status: Chronic Qualifiers: Asthma severity: unspecified severity Asthma persistence: unspecified Asthma complication type: unspecified Qualified Code(s): J45.909 - Unspecified asthma, uncomplicated (9) Cirrhosis of liver Code(s): K74.60 - UNSPECIFIED CIRRHOSIS OF LIVER Status: Chronic Qualifiers: Hepatic cirrhosis type: other cirrhosis Qualified Code(s): K74.69 - Other cirrhosis of liver (10) Macrocytosis Code(s): D75.89 - OTHER SPECIFIED DISEASES OF BLOOD AND BLOOD-FORMING ORGANS Status: Chronic (11) Thrombocytopenia Code(s): D69.6 - THROMBOCYTOPENIA, UNSPECIFIED Status: Chronic - Plan Plan: #Sepsis likely 2/2 Moderate acute ascending cholangitis vs. SBP vs. PNA & E coli bacteremia - Fever, tachycardia, +Zarate sign, & Jaundice on presentation. CXR showed possible PNA & CT abd/pelvis notable for severe cirrhosis but also a dilated CBD with debris in biliary tree. RUQ US showed dilated gallbladder & CBD. - Patient s/p ERCP with Dr. Atkinson yesterday that did not reveal any stones. Per GI DDX includes cholangitis vs. SBP. -Continue cefepime per Bld culture sensitivities. #lactic acidosis, improving - lactate down to 4.7 this AM & bicarb up to 20. Will continue to trend. #E. coli Bacteremia - Cx sensitivities show resistance only to ampicillin. Continue IV Cefepime in setting of critical illness. #Possible LLL PNA -CXR on 12/14 read as B/L effusions, small, & new LLL consolidation that could represent a PNA. CXR w/ no significant changes this AM. -Covid negative -Stable on Bipap which she required after ERCP yesterday & now in IMCU w/ pulm on board, appreciate recs. -Continue IV cefepime, levaquin d/c 2/2 QT prolongation. #DEVI 2/2 hepatorenal syndrome - Renal function continues to decline w/ decreased UO overnight. eGFR of 37 this AM. Likely 2/2 hepatorenal syndrome in setting of decompensated cirrhosis & bacteremia. - Continue albumin per GI & will await further GI recs for additional meds such as midodrine and/or octreotide. Continue to renally dose meds. - Continue to trend. #Anemia - Hgb continues to downtrend but patient is up ~2L fluid glass this AM so some dilutional component is likely present. Will continue to trend Hgb & transfuse PRN. #Severe hepatic Cirrhosis w/ associated varices & portal vein thrombosis 2/2 treated Hep C (cured 2013) -Labs continue to worsen w/ INR up to 3.2, TBili of 7.1 & AST of 54. Renal function also declining w/ decreased UO concerning for hepatorenal syndrome. -Pt follows with Dr. Mic german and Dr. Jones in [place]. -GI, Dr. Atkinson on board, appreciate recs. Will reach out to GI for recs this AM & consider touching base with Head Of Ethics And Compliance as well as they may want patient transferred. -Poor prognosis discussed with patient and in detail & PC consult placed. #Acute on chronic Thrombocytopenia, worsening -Plts down to 20 this AM. Will consider a Plt transfusion as patient is high risk for bleeding since now s/p ERCP and in the setting of severe cirrhosis & infection. -Continue to hold anticoagulation. SCDs for VTE PPX. #QT prolongation -QTc >500 on EKG 2 nights ago. -Will hold QT prolonging agents #Hyperbilirubinemia, worsening -See above #Irregularly irregular heart rhythm -EKG notable for Sinus w/ SV complexes & prolonged QT >500. #Hx Chronic Cough -Pt seeing forming process worker at this time. Per her chart has a hx of emphysema. Continued home meds. -Duonebs PRN for SOB #Hypotension -Holding home propranolol for varices and thrombosis due to BP low. Map consistently <70 overnight despite 2 small 500mL fluid boluses. Likely 2/2 decompensated cirrhosis in setting of severe infection. -Continue to monitor & will continue albumin & consider adding midodrine & octreotide in setting of likely hepatorenal syndrome as wel. #Macrocytosis - Likely 2/2 chronic liver disease. #High grade narrowing SMA -Seen on CT; Pt denies abdominal pain with eating #Hypoglycemia, resolved Diet: Low Na IVF: D5W w/ 150 mEq of Na Bicarb @ 125mL/hr DVT ppx: SCDs GERD: Tums Abx: Cefepime Code status: Full PCP: CC Dispo: Continue IVFs and antibiotics & will wean off bipap as tolerated. Addendum - Attending - Attending Attestation Date/Time: 12/16/19 2973 I personally evaluated the patient and discussed the management with Dr. Schultz. I agree with the History, Examination, Assessment and Plan documented above with any addition or exceptions noted below. She is off BiPap this morning and mentating better but her labs are all worsening as she appears to be developing hepatorenal syndrome. Will continue bicarb gtt and IV albumin. Prognosis discussed at length with who stated he and the patient wanted her sons to be able to see her before she deteriorated further. I spoke with ICU charge nurse to see what needed to be done to arrange this. Will revisit CODE status this afternoon. Awaiting GI recs and will see if we can reach out to recreation therapy teacher in [place] for recommendations. Prognosis is guarded.
[2019-12-16] MEDS ORDERED: Magnesium Oxide 400 MG TAB PO PRN ×2 (07:14)
[2019-12-16] MEDS ORDERED: Potassium Chloride 40 MEQ in Premix Bag 1 BAG IVPB PRN (07:14)
[2019-12-16] MEDS ORDERED: CCU ELECTROLYTE REPLACEMENT PROTOCOL FS PRN (07:14)
[2019-12-16] MEDS ORDERED: Potassium Phosphate 9 MMOL in Sodium Chloride 0.9% 100 ML IVPB PRN (07:14)
[2019-12-16] MEDS ORDERED: Potassium Phosphate 12 MMOL in Sodium Chloride 0.9% 250 ML 250 ML IV PRN (07:14)
[2019-12-16] MEDS ORDERED: Magnesium 2 GM/50 ML 2 GM in Premix Bag 1 BAG IVPB PRN (07:14)
[2019-12-16] MEDS ORDERED: Potassium Chloride 20 MEQ TAB PO PRN (07:14)
[2019-12-16] MEDS ORDERED: PHOS-NAK 1 PKT PACK PO PRN ×2 (07:14)
[2019-12-16] MEDS ORDERED: Potassium Phosphate 15 MMOL in Sodium Chloride 0.9% 250 ML 250 ML IV PRN (07:14)
[2019-12-16] MEDS ORDERED: Potassium Chloride 40 MEQ in Sodium Chloride 0.9% 250 ML 250 ML IVPB PRN (07:14)
[2019-12-16] MEDS ORDERED: CCU Electrolyte Replacement 1 EACH FS SCH (07:15)
[2019-12-16 07:38] LABS: Lactic Acid 4.7 mmol/L (0.5-2.2)
[2019-12-16] MEDS: Mometasone 100 MCG/PUFF (1 INHALER) INH SCH ×2 (07:43→18:37)
[2019-12-16] MEDS ORDERED: Potassium Chloride 20 MEQ TAB PO SCH (08:45)
[2019-12-16] MEDS: Cefepime 2 GM in Sodium Chloride 0.9% 100 ML IVPB SCH ×2 (08:52→21:46)
--- NOTE | 2019-12-16 09:46 | PRG ---
DATE OF SERVICE: 12/16/2019 Kayla Triana is a 69-year-old female, remains in the ICU on a BiPAP. OBJECTIVE: VITAL SIGNS: Temperature 99, respiratory rate 29, sats 95%, blood pressure 114/53. I's and O's have been slightly high. CHEST: Decreased breath sounds, no wheezing. CARDIAC: Normal S1, S2. No gallops. ABDOMEN: Soft. LABORATORY DATA: White count is only 7000, H and H are 9/27, platelet count is 20,000, further decreased. INR is 3.2, and her lactic acid is 4.7, BUN and creatinine elevated at 27 and 1.41. Blood cultures growing E coli. Chest x-ray shows worsening bilateral infiltrates, left greater than right. There may be small pleural effusion. IMPRESSION: 1. Multiorgan failure, E coli sepsis. 2. Pneumonia. 3. Liver failure, prolonged PT/INR. She is still with somewhat severe thrombocytopenia. 4. Azotemia. I discussed the findings at length with the . Her overall prognosis is grave. We are going to continue supportive care. She is on Maxipime, neb treatments. Await input from GI to see whether she has worsening liver problems at this stage. Somewhere down the line, she was treated for hepatitis. This is one-half hour of critical time. Job ID: [id number]
--- NOTE | 2019-12-16 10:00 | RAD ---
PORTABLE CHEST: Date: 12/16/2019 HISTORY: Follow-up pneumonia. COMPARISON: 12/15/2019 exam. FINDINGS: Heart size is enlarged. Bibasilar pleural and parenchymal lung changes are felt to be fairly stable a s compared to the prior exam given differences in position of the patient. IMPRESSION: Essentially stable exam. POS: [facility]
[2019-12-16] MEDS ORDERED: traMADol HCl 50 MG TAB PO PRN (10:01)
[2019-12-16] MEDS ORDERED: Morphine 4 MG/ML VIAL SLOW IVP PRN (10:01)
[2019-12-16 13:47] LABS: Sodium, Urine Less than 20 mmol/L (Not Available); Urea Nitrogen, Random Urine 215 mg/dl
[2019-12-16 14:13] LABS: Protein, Urine Random Quant 845 mg/dL (1-14)
[2019-12-16] MEDS: Octreotide Acetate 100 MCG/ML VIAL SLOW IVP SCH ×2 (14:13→21:47)
[2019-12-16] MEDS: Midodrine HCl 5 MG TAB PO SCH ×2 (14:14→21:47)
[2019-12-16] MEDS: Phytonadione 10 MG/ML AMP PO SCH (14:14)
--- NOTE | 2019-12-16 14:42 | CON ---
DATE OF CONSULTATION: 12/16/2019 SERVICE: Nephrology. REASON FOR CONSULTATION: Poor urine output and elevated creatinine. REQUESTING PHYSICIAN: Niyah Schultz MD HISTORY OF PRESENT ILLNESS: A 69-year-old female with known history of decompensated liver cirrhosis associated with portal hypertension, esophageal varices, and prior ascites amongst others, admitted due to right-sided back and flank pain, associated with fever and dry heaves. The patient on presentation was found to be hypotensive, and impression of sepsis was made. Initial urinalysis was unremarkable, but subsequent ultrasound of the abdomen showed gallbladder thickening as well as [place]-gallbladder fluid, suggestive of cholecystitis. The patient was started on broad-spectrum antibiotics, and later grew E coli in bloodstream. Possible cholangitis was made and GI consult was obtained and the patient had ERCP yesterday, following which she developed unstable hemodynamics and worsening shortness of breath, hence was subsequently transferred to the ICU and started on BiPAP. Overnight, urine output dropped significantly, that is making about 10 mL of urine every 2 hours and creatinine went up from 0.8 yesterday morning to 1.5. The patient also was started on albumin infusion last night. The urine output has not changed. She continued to complain of shortness of breath, but fever has subsided. She also complains of easy bruisability, but denied headache or vomiting. Abdominal pain has also subsided. Blood pressure since hospitalization has been soft with occasional dips in hypertension into 80s. PAST MEDICAL HISTORY: 1. Hepatitis C infection, status post treated. 2. Liver cirrhosis, due to hepatitis C infection. 3. Asthma. 4. Gastroesophageal reflux disease. 5. Esophageal varices. 6. History of portal vein thrombosis. PAST SURGICAL HISTORY: 1. Hemorrhoidectomy. 2. Back surgery for congenital scoliosis. 3. Bilateral cataract removal. 4. Hysterectomy. FAMILY HISTORY: Reviewed, but noncontributory. SOCIAL HISTORY: The patient lives at home with spouse. Denied alcohol, tobacco, or recreational drug use. ALLERGIES: AZITHROMYCIN. MEDICATIONS: Prior to hospital medications are as follows: 1. Albuterol 2 puffs inhalation q.4 h. p.r.n. 2. Budesonide 0.25 mg nebulization b.i.d. 3. Perforomist 20 mcg nebulization b.i.d. 4. Propranolol 10 mg p.o. daily. Current hospital medications: 1. Cefepime 2 g IV b.i.d. 2. Sodium bicarbonate started earlier this morning at 125 mL/h. 3. Cholecalciferol 2000 units daily. 4. DuoNeb q.6 h. p.r.n. 5. Mometasone 100 mcg inhalation b.i.d. REVIEW OF SYSTEMS: Twelve-point review of system performed was negative other than pertinent positives and negatives included in the history of present illness. PHYSICAL EXAMINATION: VITAL SIGNS: Temperature 97.0, pulse 96, respiratory rate 26, SpO2 of 91 on 6 L nasal cannula, and blood pressure is 112/53. I and O in the last 24 hours showed total intake of 2912 with total output of 331. The patient has indwelling Horan catheter in place. GENERAL: Chronically ill-looking female, in [id number] respiratory distress. Afebrile and acyanotic. HEENT: Normocephalic and atraumatic. Oral mucosa is moist. Medial bilateral conjunctival hemorrhage as well as mild ecchymosis on the left aspect of nasal bridge noted. NECK: Supple with no obvious JVD. CARDIOVASCULAR: Regular rhythm and rate with normal heart sounds 1 and 2. RESPIRATORY: Fair air entry bilateral with some transmitted breath sounds. Air entry is mildly decreased at the bases. Tachypnea noted. No obvious rhonchi was appreciated. GI: Full with possible mild enlargement. Nontender with normal bowel sounds. UROGENITAL: Horan catheter is in place, draining a little urine. EXTREMITIES: [id number] edema of the legs noted. SKIN: Ecchymoses and bruises of both forearm noted. POWER CLEANER OPERATOR: Conscious and alert and oriented x3 with appropriate mental status. Cranial nerves 2 through 12 are grossly intact. DIAGNOSTIC DATA: CBC today showed WBC count of 7.0, hemoglobin of 9.0, MCV of 112, and platelet of 20. Of note, platelet was 37 yesterday and was 81 on presentation. Coagulation panel today showed PT 32.6, INR 3.2, and PTT 49.0. On presentation, PT was 19.6, INR 1.7, and PTT 36.9. Chemistry earlier today showed sodium 138, potassium 3.4, chloride 105, CO2 of 20, BUN 24, creatinine 1.41, glucose 196, calcium 7.8, total bilirubin 7.1, AST 54, ALT 22, alkaline phosphatase 49, total protein 5.9, and albumin 4.1. Lipase is 736, which is elevated from 116 yesterday and 47 on admission. Prior to ERCP yesterday, sodium was 137, potassium 3.8, chloride 108, CO2 of 18, BUN 14, creatinine 0.88, total bilirubin 5.4, AST 51, ALT 22, and alkaline phosphatase 72. Review of medical records showed that since admission creatinine has been stable, ranging from 0.7 to 0.8 prior to ERCP. Urinalysis performed on presentation showed yellow turbid urine with pH of 5.0, specific gravity of 1.028, urine protein 20, normal glucose, trace ketones, 2+ blood, 1+ bilirubin, urobilinogen 4, nitrite negative, and leukocyte esterase negative. Microscopy showed 0 to 3 rbc and 0 to 3 wbc. Ultrasound of the right upper quadrant performed on presentation, 12/14/2019, showed right pleural effusion, cirrhosis of the liver, ascites as well as gallbladder wall thickening without gallstone, dilated common bile duct, and sonograph reported positive Zarate sign. It was also reported that gallbladder was distended with pericholecystic fluid with the gallbladder wall measuring 1.0 mm. ASSESSMENT: 1. Acute kidney injury, associated with anuria. Hemodynamic factors since most likely. Acute decompensation following endoscopic retrograde cholangiopancreatography makes the etiology most likely either due to volume depletion/intravascular contraction or hepatorenal syndrome. Despite treatment with albumin, blood pressure remained soft, though improving now, but urine output has remained abysmal. It was also noted that lipase is elevated and BUN is trending up. 2. Acute respiratory failure, requiring oxygen supplementation and BiPAP. 3. Metabolic acidosis. 4. Volume overload/ascites. 5. Decompensated liver cirrhosis with coagulopathy, ascites, and worsening bilirubin. 6. Presumed sepsis of unclear source of infection. 7. Escherichia coli bacteremia of unclear source of infection. Cholangitis and/or cholecystitis are considered. 8. Hypokalemia. PLAN: 1. We will get urine electrolytes. 2. Agree with sodium bicarbonate. 3. We will also start albumin, midodrine, and octreotide empirically for presumed hepatorenal syndrome. 4. We will monitor electrolytes and urine output closely. 5. We will replete serum potassium with potassium chloride. 6. In view of severe thrombocytopenia, I recommend substitution of cefepime with levofloxacin since cefepime can cause thrombocytopenia. 7. We will also start vitamin K supplementation given coagulopathy. 8. Care plan was discussed with the patient as well as spouse and children at the bedside. 9. Further treatment to follow depending on hospital course. Many thanks for involving us in the care of this patient. We will follow along with you. Job ID: [id number]
[2019-12-16 14:55] LABS: Lactic Acid 4.9 mmol/L (0.5-2.2)
--- NOTE | 2019-12-16 14:56 | PRG ---
DATE OF SERVICE: 12/16/2019 This is a cross coverage for Dr. Jeevan Atkinson. SUBJECTIVE: Ms. Kayla Triana is a very pleasant 69-year-old female with liver cirrhosis due to fatty liver, which is a longstanding. She does see Dr. Jones in [place] for liver disease. The patient underwent an ERCP with papillotomy by Dr. Jeevan Atkinson yesterday. There is no common bile duct stone on ERCP. She underwent a papillotomy. With underlying liver disease, she was difficult to wake up and she also mildly hypotensive. She also opened eyes yesterday. Apparently last night, she had some mild hypotension. However, today this morning her blood pressure back to normal. Her blood pressure is 116/70. She is awake, alert, and communicative. Her BUN is slightly going up from admission and also her urine output is decreasing. There is possibility of hepatorenal syndrome. Dr. Owens, Nephrology saw the patient today and ordered some midodrine and also Sandostatin. She had IV fluids at 120 mL/h. She has no abdominal pain. No nausea or vomiting. PHYSICAL EXAMINATION: GENERAL: She is a very fragile looking female, appears very comfortable. She is awake, alert, and communicative. VITAL SIGNS: Today is the most stable, heart rate varies from 94 to 101, blood pressure 120/69. CARDIOVASCULAR: Normal heart sounds. LUNGS: Clear to auscultation. ABDOMEN: Soft and nondistended. Abdomen is nontender. LABORATORY DATA: From today CBC; WBC 7000, hemoglobin 9, hematocrit 31.6, platelet count 20,000. Chem 7; BUN has gone over 24 and creatinine is 1.41. Lytes are normal. Albumin 4.1 today. Lactic acid 4.4. IMPRESSION: 1. Escherichia coli sepsis, source unclear, possible ascending cholangitis. 2. Status post endoscopic retrograde cholangiopancreatography with papillotomy. No stones on endoscopic retrograde cholangiopancreatography. 3. Thrombocytopenia due to liver cirrhosis. 4. Decreased urine output and also mild hypotension last night. Possibility of hepatorenal syndrome. The patient has been seen by Nephrology earlier today and ordered Sandostatin and also midodrine. We will continue IV fluids. Also, continue IV albumin. I did discuss with the patient's son about the poor prognosis because of the kidney shutting down in the light of advanced liver disease. Job ID: [id number]
[2019-12-17] MEDS: Sodium Bicarbonate 150 MEQ in Dextrose 5% in Water 1,000 ML IV SCH ×2 (02:43→13:02)
[2019-12-17 03:58] LABS: INR-International Normal Ratio 3.2; PTT 48.8 sec (22.9-36.1); Prothrombin Time 32.1 sec (12.0-14.7)
[2019-12-17 04:19] LABS: Platelet Count 25 thou/uL (130-400)
[2019-12-17 04:31] LABS: ALT (SGPT) 77 U/L (8-55); AST (SGOT) 210 U/L (5-34); Albumin 4.4 g/dL (3.4-4.8); Alkaline Phosphatase 41 U/L (40-110); Anion Gap 16 mmol/L (10-20); BUN (Urea Nitrogen) 33 mg/dL (9.8-20.1); Bilirubin, Total 5.3 mg/dL (0.2-1.2); Calc. Creatinine Clearance 24 mL/min (70-130); Calcium 7.8 mg/dL (7.8-10.44); Carbon Dioxide 26 mmol/L (23-31); Chloride 99 mmol/L (98-107); Estimated GFR-MDRD 22; Globulin 1.9 g/dL (2.4-3.5); Glucose 147 mg/dL (83-110); Potassium 3.5 mmol/L (3.5-5.1); Protein, Total 6.3 g/dL (6.0-8.3); Sodium 137 mmol/L (136-145)
[2019-12-17 04:53] LABS: #Lymphocytes 0.7 thou/uL (1.20-3.40); #Monocytes 0.8 thou/uL (0.11-0.59); #Neutrophils 5.4 thou/uL (1.40-6.50); %Basophils 0.1 % (0.0-1.0); %Eosinophils 0.4 % (0.0-10.0); %Lymphocytes 10.4 % (21.0-51.0); %Monocytes 11.1 % (0.0-10.0); Hemoglobin 8.6 g/dL (12.0-16.0); Large Platelets SLIGHT; MDiff Complete? YES; Macrocytosis SLIGHT = 6-15 cells (100X) (0-5/hpf); Mean Corpuscular Hemoglobin 36.4 pg (27.0-31.0); Mean Platelet Volume 12.8 fL (7.4-10.4); Platelet Morphology Comment Appears Decreased; Polychromasia SLIGHT = 2-3 cells (100X) (0-2/hpf); RBC Distribution Width 15.2 % (11.5-14.5); Red Blood Cell (RBC) Count 2.36 mill/uL (4.20-5.40); White Blood Cell (WBC) Count 6.9 thou/uL (4.8-10.8)
--- NOTE | 2019-12-17 06:45 | PDOC.FM ---
- Subjective Subjective: Patient placed back on Bipap overnight for desatting into the low 80s during episodes of coughing. Patient reports coughing up a small amount of phlegm with a small amount of blood in it. Was resting comfortably on the Bipap but did report some nausea on exam. - Objective MAR Reviewed: Yes Vital Signs & Weight: Vital Signs (12 hours) Temp Pulse Resp Pulse Ox 12/17/19 04:00 98.0 F 12/17/19 02:29 89 31 H 89 L 12/17/19 02:28 89 31 H 89 L 12/17/19 01:00 97.9 F 12/17/19 00:00 93 L 12/16/19 22:25 97 34 H 92 L 12/16/19 20:00 98.1 F 90 L Weight Admit Weight 54.885 kg Weight 67 kg Most Recent Monitor Data Heart Rate from ECG 85 NIBP 97/59 NIBP BP-Mean 71 Respiration from ECG 17 SpO2 93 I&O: 12/15/19 12/16/19 12/17/19 06:59 06:59 06:59 Intake Total 800 2912 3352 Output Total 331 142 Balance 800 2581 3210 Result Diagrams: 12/17/19 03:13 12/17/19 03:13 Phys Exam - Physical Examination Constitutional: NAD HEENT: moist MMs left conjunctival hemorrhage Neck: supple, full ROM Respiratory: no wheezing, no rales Cardiovascular: RRR, no significant murmur Gastrointestinal: non-tender moderate distention Musculoskeletal: no edema Neurological: non-focal, moves all 4 limbs Psychiatric: normal affect, A&O x 3 Skin: no rash Deviation from normal: scattered purpura & petechiae on extremities 2/2 IV & needle sticks Dx/Plan (1) Lactic acidosis Code(s): E87.2 - ACIDOSIS Status: Acute (2) Bacteremia Code(s): R78.81 - BACTEREMIA Status: Acute (3) Elevated bilirubin Code(s): R17 - UNSPECIFIED JAUNDICE Status: Acute (4) Sepsis Code(s): A41.9 - SEPSIS, UNSPECIFIED ORGANISM Status: Acute Qualifiers: Sepsis type: Escherichia coli Sepsis acute organ dysfunction status: with acute organ dysfunction (5) Esophageal varices Code(s): I85.00 - ESOPHAGEAL VARICES WITHOUT BLEEDING Status: Chronic Qualifiers: Esophageal varices bleeding: without bleeding (6) Hx of hepatitis C Code(s): Z86.19 - PERSONAL HISTORY OF OTHER INFECTIOUS AND PARASITIC DISEASES Status: Chronic (7) Portal vein thrombosis Code(s): I81 - PORTAL VEIN THROMBOSIS Status: Chronic (8) Asthma Code(s): J45.909 - UNSPECIFIED ASTHMA, UNCOMPLICATED Status: Chronic Qualifiers: Asthma severity: unspecified severity Asthma persistence: unspecified Asthma complication type: unspecified Qualified Code(s): J45.909 - Unspecified asthma, uncomplicated (9) Cirrhosis of liver Code(s): K74.60 - UNSPECIFIED CIRRHOSIS OF LIVER Status: Chronic Qualifiers: Hepatic cirrhosis type: other cirrhosis Qualified Code(s): K74.69 - Other cirrhosis of liver (10) Macrocytosis Code(s): D75.89 - OTHER SPECIFIED DISEASES OF BLOOD AND BLOOD-FORMING ORGANS Status: Chronic (11) Thrombocytopenia Code(s): D69.6 - THROMBOCYTOPENIA, UNSPECIFIED Status: Chronic (12) Hepatorenal syndrome Code(s): K76.7 - HEPATORENAL SYNDROME Status: Acute (13) Hypomagnesemia Code(s): E83.42 - HYPOMAGNESEMIA Status: Acute - Plan Plan: #Sepsis likely 2/2 Moderate acute ascending cholangitis vs. SBP vs. PNA & E coli bacteremia - Fever, tachycardia, +Zarate sign, & Jaundice on presentation. CXR showed possible PNA & CT abd/pelvis notable for severe cirrhosis but also a dilated CBD with debris in biliary tree. RUQ US showed dilated gallbladder & CBD. - Patient s/p ERCP with Dr. Atkinson on 12/13 that did not reveal any stones. Per GI DDX includes cholangitis vs. SBP as potential sources for bacteremia. - Transition to IV levaquin today per nephro recs in setting of low plts as patient remains critically ill and has had difficulty taking PO meds. #lactic acidosis, improving - lactate down to 3.0 this AM & bicarb up to 26. Will continue to monitor. #E. coli Bacteremia - Cx sensitivities show resistance only to ampicillin. Transition to IV levaquin per nephro recs. #Possible LLL PNA -CXR on 12/14 read as B/L effusions, small, & new LLL consolidation that could represent a PNA. CXR w/ no significant changes this AM. -Covid negative -Stable on Bipap which she required after ERCP on 12/13. Short trial on NC yesterday but placed back on Bipap overnight. Pulm on board, appreciate recs. -Transition back to IV levaquin per nephro recs #DEVI 2/2 hepatorenal syndrome - Renal function continues to decline w/ worsened decreased UO overnight. eGFR of 22 this AM. - Continue albumin, midodrine &, octreotide. Nephro on board, appreciate recs. Continue to renally dose meds. - Continue to trend renal function QD & monitor strict I&Os. #Anemia - Hgb continues to downtrend but patient is up ~3L fluid glass this AM so some dilutional component is likely present. Will continue to trend Hgb & transfuse PRN. #Severe hepatic Cirrhosis w/ associated varices & portal vein thrombosis 2/2 treated Hep C (cured 2013) -Labs continue to worsen w/ INR up to 3.2, TBili of 5.3 & AST/ALT 210/77. Renal function also declining w/ decreased UO concerning for hepatorenal syndrome as noted above. -Pt follows with Dr. Haile outpatient and Dr. Jones in [place]. -GI, on board, appreciate recs. Will consider touching base with patient's [facility] as well as they may want patient transferred. -Poor prognosis discussed with patient and in detail & PC consult placed yesterday. Will touch base with PC today. #Acute on chronic Thrombocytopenia, improving -Plts 25 this AM but will consider transfusing Plts as patient having blood- tinged sputum production overnight. -Continue to hold anticoagulation. SCDs for VTE PPX. Continue to trend. #QT prolongation -QTc >500 on EKG 2 nights ago. -Will hold QT prolonging agents. #HypoMg - Mg 1.4 this AM. Will replace per CCU electrolyte protocol. #Hyperbilirubinemia, improving -See above #Irregularly irregular heart rhythm -EKG notable for Sinus w/ SV complexes & prolonged QT >500. Continue to monitor & hold QT prolonging agents. #Hx Chronic Cough -Pt seeing general foreman at this time. Per her chart has a hx of emphysema. Continue home meds. -Duonebs YOKASTA & albuterol PRN for SOB. #Hypotension -Holding home propranolol for varices and thrombosis due to BP low. Map slightly improved overnight w/ minimum of 67 after addition of midodrine & octreotide yesterday. -Continue to monitor. #Macrocytosis - Likely 2/2 chronic liver disease. #High grade narrowing SMA -Seen on CT; Pt denies abdominal pain with eating #Hypoglycemia, resolved Diet: Low Na IVF: D5W w/ 150 mEq of Na Bicarb @ 125mL/hr DVT ppx: SCDs GERD: Tums Abx: Cefepime (12/11-12/15), Levaquin (12/16) Code status: Full PCP: CC Dispo: Continue IVFs and antibiotics pending GI, hepatology, nephro, pulm, and palliative care recs. Prognosis remains grave. Addendum - Attending - Attending Attestation Date/Time: 12/17/19 6233 I personally evaluated the patient and discussed the management with . [] I agree with the History, Examination, Assessment and Plan documented above with any addition or exceptions noted below. Patient made herself DNI this morning. We spoke with hepatology at [facility] would accept transfer if patient desired. Patient has declined transfer at this time but still desires cardiac code. Will reassess as she progresses. Switching to rocephin since prolonged QTc interval and thrombocytopenia. Prognosis is guarded and I suspect she will pass in the next 24 hours.
[2019-12-17] MEDS ORDERED: Metoclopramide HCl 10 MG/2 ML VIAL IVP PRN (07:21)
[2019-12-17] MEDS: Octreotide Acetate 100 MCG/ML VIAL SLOW IVP SCH (07:25)
[2019-12-17] MEDS: Mometasone 100 MCG/PUFF (1 INHALER) INH SCH (07:37)
[2019-12-17] MEDS ORDERED: Potassium Chloride 20 MEQ TAB PO SCH (08:00)
[2019-12-17] MEDS ORDERED: methylPREDNISolone Sod Succ/PF 125 MG/2 ML VIAL IVP SCH (09:00)
[2019-12-17] MEDS ORDERED: Magnesium 2 GM/50 ML 2 GM in Premix Bag 1 BAG IVPB SCH (09:00)
--- NOTE | 2019-12-17 09:27 | PRG ---
DATE OF SERVICE: 12/17/2019 SUBJECTIVE: Kayla Triana is a 69-year-old female, vomited this morning. She is still short of breath. OBJECTIVE: VITAL SIGNS: Pulse 101, BiPAP sats 90%, respirations 30, blood pressure 126/74. I's and O's have been consistently even. CHEST: Decreased breath sounds, no wheezing. CARDIAC: Normal S1, S2. LABORATORY DATA: INR 3.2, white count is 6000, H and H are stable. Platelet count is very low. BUN and creatinine 33 and 2.1. ASSESSMENT: 1. Hepatitis C, prolonged PT/INRs, liver failure. 2. Aspiration pneumonia, respiratory failure, renal failure, Escherichia coli sepsis. PLAN: 1. She is not tolerating the BiPAP and I am going to try high-flow in her, otherwise continue neb treatments, supportive care. Trial of low-dose steroids. 2. Continue observation in the ICU. She is still a full code. One-half hour of critical care time. Job ID: [id number]
[2019-12-17] MEDS ORDERED: cefTRIAXone\\ROCEPHIN 2 GM in Sodium Chloride 0.9% 100 ML IVPB SCH (10:00)
[2019-12-17] MEDS: Midodrine HCl 5 MG TAB PO SCH (10:35)
[2019-12-17] MEDS ORDERED: Digoxin 0.5 MG/2 ML AMP ONE (11:02)
[2019-12-17] MEDS ORDERED: Digoxin 0.5 MG/2 ML AMP SLOW IVP SCH (11:30)
[2019-12-17] MEDS ORDERED: Furosemide 20 MG/2 ML VIAL SLOW IVP SCH (11:45)
[2019-12-17] MEDS ORDERED: Amiodarone 150 MG in Dextrose 5% in Water 100 ML IVPB SCH (12:15)
[2019-12-17] MEDS ORDERED: Lorazepam 2 MG/ML VIAL SLOW IVP PRN (12:39)
[2019-12-17] MEDS ORDERED: Haloperidol Lactate 5 MG/ML VIAL SLOW IVP PRN (12:40)
[2019-12-17] MEDS ORDERED: Morphine 4 MG/ML VIAL SLOW IVP PRN (12:42)
--- NOTE | 2019-12-17 12:51 | PDOC.EVN ---
Event Note - Event Note Event Note: Had an extensive discussion with patient with at bedside. Patient aware that her clinical status is declining and stated "I'm tired" and "I just want to be comfortable." in agreement to discontinue all meds and to continue comfort measures only. Code status changed to DNAR & signed DNAR form for patient as she was too weak to do so herself. ATTENDING ADDENDUM: I visited the patient and her at approximately 1340. Patient was resting comfortably and reassured . All questions answered. Will proceed with full comfort measures and move her to the medical floor for end of life care. I discussed hospice care with the patient's but he would like to hold off for now. If she survives the night, we will revisit it at that time.
[2019-12-17] MEDS ORDERED: Scopolamine 1.5 mg/72 hour Patch TD SCH (13:00)
--- NOTE | 2019-12-17 13:01 | PRG ---
DATE OF SERVICE: 12/17/2019 SERVICE: Nephrology. SUBJECTIVE: A 69-year-old female with advanced liver cirrhosis from hepatitis C infection, seen in followup for acute renal failure. The patient complained of worsening shortness of breath, hence was started on BiPAP. Urine output remained poor. No fever. OBJECTIVE: VITAL SIGNS: Temperature 98.1, pulse 88, respiratory rate 21, blood pressure 113/53, SpO2 of 94% on BiPAP. Intake and output in the last 24 hours showed total intake of 3352 with total output of 142. GENERAL: Chronically ill-looking elderly female, in mild respiratory distress. Afebrile, acyanotic. HEENT: Normocephalic, atraumatic. BiPAP mask is in place. CARDIOVASCULAR: Regular rhythm and rate with normal heart sounds 1 and 2. RESPIRATORY: BiPAP transmitted breath sound is heard. Air entry however is decreased at both bases. GI: Abdomen is enlarged. Soft, nontender. Bowel sound is normoactive. UROGENITAL: Horan catheter is in place draining little or no urine. EXTREMITIES: [id number] bilateral thigh and lower back edema noted. Feet and legs are without any obvious edema. Ecchymoses and bruises of both forearm noted. LOAD BLOCKER: Conscious, alert, and oriented x3 with appropriate mental status. DIAGNOSTIC DATA: CBC showed WBC count of 6.9, hemoglobin of 8.6, platelet of 25. Chemistry showed sodium 137, potassium 3.5, chloride 99, CO2 of 26, BUN 33, creatinine 2.17, glucose 147, calcium 7.8, total bilirubin 5.3, AST 210, ALT 77, alkaline phosphatase 41, total protein 6.3, albumin 4.4. Lipase is 88, which is down from 736 yesterday. Magnesium is 1.4. Lactic acid is 3.0, which is down from 4.9. Coagulation panel showed PT 32.1, INR 3.2, PTT 48.8. ASSESSMENT: 1. Acute renal failure: This is most likely due to hepatorenal syndrome. Volume expansion with albumin and IV fluids have not improved renal function or urine output. 2. Metabolic acidosis: Improved with sodium bicarbonate. 3. Volume overload/anasarca due to decompensated liver cirrhosis. 4. Severe thrombocytopenia. 5. Hypomagnesemia. PLAN: 1. We will continue octreotide and midodrine. We will also replete serum magnesium with magnesium sulfate. 2. We will discontinue sodium bicarbonate infusion due to possibility of fluid overload. Urine output remained poor. 3. We will also continue vitamin K due to coagulopathy. 4. I did discuss option of dialysis with the patient's spouse at the bedside should renal function worsen. I was told that the patient now wants to be do not resuscitate and does not want to have hemodialysis. We will therefore continue supportive and conservative treatment with octreotide and midodrine. We will discontinue albumin due to the further serum albumin is 4.4 and the patient's hemodynamic has improved already. 5. Treatment of acute respiratory failure as per polisher hand. Further treatment to follow depending on hospital course. We will recheck renal function test in the morning. Job ID: [id number]
[2019-12-17] MEDS: Phytonadione 10 MG/ML AMP PO SCH (13:11)
--- NOTE | 2019-12-17 13:46 | RAD ---
PORTABLE CHEST: History: Possible aspiration. Comparison: Prior day's study. FINDINGS: Heart size is enlarged. Bibasilar pleural and parenchymal lung changes are felt to be fairly similar to the prior exam given differences in technique. IMPRESSION: Stable exam. POS: [facility]
[2019-12-18 08:10] VITALS: BP 129/60; TEMP 97.5
--- NOTE | 2019-12-18 08:19 | PDOC.FM ---
- Subjective Subjective: Patient reports dry mouth this morning, dry lips. States she has no appetite. She is comfortable. She requests hospice this morning after our discussion. - Objective Vital Signs & Weight: Weight Admit Weight 54.885 kg Weight 67 kg Most Recent Monitor Data Heart Rate from ECG 155 NIBP 95/61 NIBP BP-Mean 72 Respiration from ECG 11 SpO2 89 I&O: 12/17/19 12/18/19 12/19/19 06:59 06:59 06:59 Intake Total 3352 150 Output Total 142 350 Balance 3210 -200 Result Diagrams: 12/17/19 03:13 12/17/19 03:13 Phys Exam - Physical Examination Constitutional: NAD Reclinining in bed, pale appearing. Blood in sputum. dry MM, hematoma of lips Respiratory: no wheezing crackles at LLL, clear Rt lung, no wheezing Cardiovascular: RRR, no significant murmur Gastrointestinal: soft, non-tender, no distention Musculoskeletal: no edema, pulses present Neurological: moves all 4 limbs Psychiatric: normal affect, A&O x 3 Deviation from normal: hematomas over arms, lips. Dx/Plan (1) Elevated bilirubin Code(s): R17 - UNSPECIFIED JAUNDICE Status: Acute (2) Sepsis Code(s): A41.9 - SEPSIS, UNSPECIFIED ORGANISM Status: Acute Qualifiers: Sepsis type: Escherichia coli Sepsis acute organ dysfunction status: with acute organ dysfunction (3) Cirrhosis of liver Code(s): K74.60 - UNSPECIFIED CIRRHOSIS OF LIVER Status: Chronic Qualifiers: Hepatic cirrhosis type: other cirrhosis Qualified Code(s): K74.69 - Other cirrhosis of liver (4) Thrombocytopenia Code(s): D69.6 - THROMBOCYTOPENIA, UNSPECIFIED Status: Chronic (5) Esophageal varices Code(s): I85.00 - ESOPHAGEAL VARICES WITHOUT BLEEDING Status: Chronic Qualifiers: Esophageal varices bleeding: without bleeding (6) Hx of hepatitis C Code(s): Z86.19 - PERSONAL HISTORY OF OTHER INFECTIOUS AND PARASITIC DISEASES Status: Chronic (7) Portal vein thrombosis Code(s): I81 - PORTAL VEIN THROMBOSIS Status: Chronic (8) Bacteremia Code(s): R78.81 - BACTEREMIA Status: Acute - Plan Plan: #End stage liver disease, decompensated #Hepatorenal syndrome #DEVI 2/2 hepatorenal syndrome #Severe hepatic Cirrhosis w/ associated varices & portal vein thrombosis 2/2 treated Hep C (cured 2013) - Fever, tachycardia, +Zarate sign, & Jaundice on presentation. CXR showed possible PNA & CT abd/pelvis notable for severe cirrhosis but also a dilated CBD with debris in biliary tree. RUQ US showed dilated gallbladder & CBD. Patient s/p ERCP with Dr. Atkinson on 12/13 that did not reveal any stones. Patient was undergoing antibiotic treatment for E coli bacteremia, LLL pnuemonia vs SBP vs cholangitis. Patient was made DNAR yesterday. - MELD score 34 yesterday. Estimated 90 day mortality 65-66% - Patient is now on comfort measures only. Palliative care consulted. Patient requesting hospice evaluation today. #Sepsis 2/2 E. coli Bacteremia - Stopping all treatments and pursuing comfort measures only. #Possible LLL PNA -Pursuing comfort measures only, all antibiotics discontinued -patient currently on 6L BNC, dropped to 80% O2 overnight #Anemia - aware, as above #Acute on chronic Thrombocytopenia, #QT prolongation -QTc >500 on EKG 2 nights ago. -Previously held QT prolonging agents -Pursue comfort measures now #Irregularly irregular heart rhythm -No longer monitoring, pursue comfort measures only #Hx Chronic Cough -Duonebs YOKASTA & albuterol PRN for SOB. #High grade narrowing SMA -asymptomatic, seen on CT Diet: Regular IVF: SL Abx: discontinued Code status: DNAR PCP: CC Dispo: Palliative care and hospice consulted, pursuing comfort measures. Prognosis is grave. Addendum - Attending - Attending Attestation Date/Time: 12/18/19 0139 I personally evaluated the patient and discussed the management with Dr. Ned Marcus. I agree with the History, Examination, Assessment and Plan documented above with any addition or exceptions noted below. Patient reports feeling comfortable at this time. Continue comfort care, hospice evaluation pending.
[2019-12-18] MEDS ORDERED: Pantoprazole 40 MG VIAL IVP SCH (09:00)
[2019-12-18] MEDS ORDERED: Albuterol Sulfate 2.5 mg/3 ml Neb NEB PRN (09:54)
--- NOTE | 2019-12-18 10:31 | PDOC.FMACP ---
Advance Care Planning - Problem (1) Palliative care encounter Status: Acute Code(s): Z51.5 - ENCOUNTER FOR PALLIATIVE CARE (2) Declining functional status Status: Acute Code(s): R53.81 - OTHER MALAISE (3) Hepatorenal syndrome Status: Acute Code(s): K76.7 - HEPATORENAL SYNDROME (4) Lactic acidosis Status: Acute Code(s): E87.2 - ACIDOSIS (5) Esophageal varices Status: Chronic Code(s): I85.00 - ESOPHAGEAL VARICES WITHOUT BLEEDING Qualifiers: Esophageal varices bleeding: without bleeding (6) Hx of hepatitis C Status: Chronic Code(s): Z86.19 - PERSONAL HISTORY OF OTHER INFECTIOUS AND PARASITIC DISEASES (7) Cirrhosis of liver Status: Chronic Code(s): K74.60 - UNSPECIFIED CIRRHOSIS OF LIVER Qualifiers: Hepatic cirrhosis type: other cirrhosis Qualified Code(s): K74.69 - Other cirrhosis of liver - Note Participants: patient, family, palliative care Summary: Advanced Care Planning was discussed. The diagnosis, prognosis and goals of care were discussed. Appropriate forms and documentation to accomplish the goals of care were discussed. All questions were answered. The Palliative Care Team will be engaged to assist with completion of any outstanding forms that are needed. She was allowed the opportunity to decline any completion of forms, or conversation related to advanced care planning. Mrs Mart has elected to transition to her primary goal of care to have comfort at end of life secondary to decline related to terminal condition. Her decision maker is her if she is not able. She is wishing to have no resuscitation measures if indicated to sustain life. DNAR in place, Palliative Care will complete OOHDNAR and place on chart for signature. Time Spent (mins): 30
--- NOTE | 2019-12-18 10:40 | PDOC.PALCO ---
Palliative Care Consult - Consult Details Requesting Physician: Dr Marcus Reason for Consult: goals of care, advance directives assistance, family support Family Members Present: - Pertinent HPI 69 year old female who resides in a private home setting with her of 48 years. She has two sons and two grandchildren. She found out she had Hep C when she donated blood years ago. Suspected that she acquired when she had surgery as a child years ago. Over past week prior to admission she experienced increase in right sided pain that became difficult to manage. Onset of chills with the absence of fever. Progressing to nausea with "dry heaves" presented to the emergency room secondary to progressing back pain and feeling "worse". Admitted for higher level of care and management of sepsis, cirrhosis. During course of stay intermittent use of Bipap and continued decline. - Pertinent PMH Hep C, GERD, Asthma, Cirrhosis, Espohageal Varices, Portal Vein Thrombosis. - Social History Smoking Status: Never smoker Smoking: no tobacco exposure Alcohol Use: none Drug Use History: none Living Situation: independent, - Medications MAR Reviewed: Yes - Allergies Allergies/Adverse Reactions: Allergies Allergy/AdvReac Type Severity Reaction Status Date / Time azithromycin [From Zithromax] Allergy Verified 12/14/19 01:00 - Subjective Weakness, mild right sided back pain. Difficulty clearing secretions, using suction. to beside - ROS Constitutional: alert, loss appetite, malaise, weakness ENT: dry mouth, difficulty swallowing Respiratory: shortness of breath Cardiology: other (Deneis chest pain or edema) Gastrointestinal: nausea Musculoskeletal: back pain Neurological: numbness Skin: bruising - Objective Vital Signs: Vital Signs - Most Recent Temp Pulse Resp BP Pulse Ox 97.5 F L 91 18 129/60 85 L 12/18/19 07:30 12/18/19 07:30 12/18/19 07:30 12/18/19 07:30 12/18/19 07:30 Palliative Performance Scale: 30 - Physical Exam Constitutional: ill appearing HEENT: EOMI, scleral icterus Deviation from normal: Adventicious lung sounds, more pronounced on expiration Deviation from normal: Tachycardia Deviation from normal: Distended Genitourinary: duvall catheter Musculoskeletal: pulses present, diffuse muscle atrophy Skin: bruising, fragile Deviation from normal: Icteric Psychiatric: A&O x 3 - Problem List (1) Palliative care encounter Code(s): Z51.5 - ENCOUNTER FOR PALLIATIVE CARE Current Visit: Yes Status: Acute (2) Declining functional status Code(s): R53.81 - OTHER MALAISE Current Visit: Yes Status: Acute (3) Hepatorenal syndrome Code(s): K76.7 - HEPATORENAL SYNDROME Current Visit: Yes Status: Acute (4) Lactic acidosis Code(s): E87.2 - ACIDOSIS Current Visit: Yes Status: Acute (5) Esophageal varices Code(s): I85.00 - ESOPHAGEAL VARICES WITHOUT BLEEDING Current Visit: Yes Status: Chronic Qualifiers: Esophageal varices bleeding: without bleeding (6) Hx of hepatitis C Code(s): Z86.19 - PERSONAL HISTORY OF OTHER INFECTIOUS AND PARASITIC DISEASES Current Visit: Yes Status: Chronic (7) Cirrhosis of liver Code(s): K74.60 - UNSPECIFIED CIRRHOSIS OF LIVER Current Visit: No Status: Chronic Qualifiers: Hepatic cirrhosis type: other cirrhosis Qualified Code(s): K74.69 - Other cirrhosis of liver - Plan/Recommendations Plan: Life review with Patient and her , they have been 48 years, anniversary in January. Two sons, the oldest just moved to [place] and has two young children. Their youngest son is not , and they are concerned how he will "handle" the passing of Mrs Triana. We discussed her goal of care, it is to not suffer and enjoy her loved ones with her at the end of her life. She states she is sad, however at peace. Mr Triana is tearful and able to express how he will miss her, but does not want her to suffer. They have requested [facility] to evaluate for inpatient secondary to higher level of care required and management of sympoms related to end of life. Choice letter done, communicated with Crissy OROZCO Communicated with Spiritual care for additional emotional and spiritual support. Naeem Ayers completed OOHDNAR Communicated with Dr Marcus [75] minutes spent on this encounter with >50% of the time in counseling and coordination of care. Thank you for this very appropriate consult.
--- NOTE | 2019-12-18 10:48 | PRG ---
DATE OF SERVICE: 12/18/2019 SUBJECTIVE: The patient was transferred from the ICU to a non-monitored bed for comfort measures. To my surprise, she is awake, alert, and responsive. No pain. OBJECTIVE: VITAL SIGNS: Temperature 97, pulse 91, respiratory rate 18, sats 86% on 6 L, blood pressure 110/60. CHEST: No wheezing. No crackles. CARDIAC: Normal S1, S2. No gallops. ABDOMEN: No masses. ASSESSMENT AND PLAN: 1. Multiorgan failure. 2. Bilateral bronchopneumonia, probably aspiration. 3. Acute on chronic liver failure. 4. SVT. 5. Congestive heart failure. As per her family's wishes, she was made a DNR, comfort care. I agree. Pulmonary Critical Care will follow at a distance. Job ID: [id number]
--- NOTE | 2019-12-18 11:41 | PRG ---
DATE OF SERVICE: 12/17/2019 SUBJECTIVE: This is a 69-year-old female with liver cirrhosis due to fatty liver, hospitalized because of sepsis and underwent ERCP by Dr. Jeevan Atkinson on 12/15/2019. She underwent ERCP and papillotomy with balloon sweep. There was no bile stone seen in the ERCP. The patient was somewhat very sleepy and lethargic after the ERCP because of sedation. She was put in ICU overnight. The patient apparently developed some hypotension late Wednesday night, early Wednesday morning. She had decreased urine output. Her BUN went up to 24 with also slight elevation of creatinine. She was seen by Nephrology and was started on IV octreotide and also midodrine. Her blood pressure seems to be stable around 126/70. However, her urine output is decreasing. instead of IV fluids and also IV octreotide and midodrine. The patient became hypoxic and has been on BiPAP. Her clinical condition is getting worse and worse. Apparently, the plan was being to transfer her to [place] under the care of Dr. Jones. Although they were willing to accept the transfer, the patient declined to be transferred out. She does not want to have any aggressive measures done and she does not want to go to [place]. The patient appears ill. OBJECTIVE: VITAL SIGNS: Her pulse rate varies from . Blood pressure is 126/70. HEENT: She is mildly icteric. CARDIOVASCULAR SYSTEM: Normal heart sounds. LUNGS: There are a few scattered rhonchi. ABDOMEN: Soft and nondistended. Abdomen is nontender. The urine output over the last 24 hours is 2331 mL. LABORATORY DATA: Today shows WBC 6900, hemoglobin 8.6, hematocrit 26.8, platelet count is 25,000, polymorphs 78, lymphocytes 10. Chemistries: BUN has gone up to 33, creatinine is 2.17. Lytes are normal. Glucose 147, calcium 7.8, bilirubin 5.3. AST is 210, ALT 77, alkaline phosphatase 41. Lipase is normal at 88. CLINICAL IMPRESSION: 1. Liver cirrhosis. 2. Escherichia coli sepsis, possibly spontaneous bacterial peritonitis versus ascending cholangitis with negative endoscopic retrograde cholangiopancreatography. 3. Hepatorenal syndrome - acute tubular necrosis. 4. Hypoxia. RECOMMENDATIONS: 1. Supportive care. 2. The patient declined to be transferred out of [place] to [place] and she prefers comfort measures. I did talk to Mr. Triana and Mr. Triana tells me that Ms. Triana decided not to have any aggressive therapy including transfer and transplant, etc. He also wishes to proceed with comfort care. Job ID: [id number]
[2019-12-18] MEDS ORDERED: HYDROcodone/Acetaminophen 5/325 mg Tablet PO PRN (11:53)
[2019-12-18] MEDS ORDERED: Morphine 2 MG/ML SYRINGE SLOW IVP PRN (12:14)
[2019-12-18 13:25] VITALS: BMI 27.0
--- NOTE | 2019-12-19 11:31 | DIS ---
DATE OF ADMISSION: 12/13/2019 DATE OF DISCHARGE: 12/18/2019 RESIDENT: Verito Marcus MD DISCHARGE ATTENDING: Jatin Bennett MD CONSULTATIONS: 1. Pulmonology, Dr. Rolle, 12/15/2019. 2. Nephrology, Dr. Owens, 12/16/2019. 3. Gastroenterology, Dr. Atkinson, 12/14/2019. PROCEDURES: 1. Chest x-ray, 12/13/2019, impression: Smal left lobe effusion with Left lower lobe adjacent atelectasis. 2. Abdominal ultrasound, 12/14/2019: Right pleural effusion. Cirrhosis of liver. Ascites. Gallbladder wall thickening without gallstones. Dilated common bile duct. Positive Zarate sign. 3. Chest x-ray, 12/15/2019: New consolidation in left lower lobe base, could represent pneumonia. Small left pleural effusion and new small right pleural effusion. 4. ERCP on 12/15/2019. 5. Echocardiogram, 12/17/2019: Left pleural effusion. EF estimated at 55% to 60%. [id number]-uv-[id number] aortic stenosis is present. PRIMARY DIAGNOSES: 1. Decompensated end-stage liver disease. 2. Severe hepatic cirrhosis with associated varices and portal vein thrombosis secondary to treated hepatitis C. 3. Decompensated hepatorenal syndrome. SECONDARY DIAGNOSES: 1. Acute kidney injury secondary to hepatorenal syndrome. 2. Sepsis secondary to Escherichia coli bacteremia. 3. Left lower lobe pneumonia. 4. Anemia. 5. Acute on chronic thrombocytopenia. 6. QT prolongation. 7. Chronic cough. 8. 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 DISCHARGE MEDICATIONS: 1. Morphine 1 q.1 IV. 2. [place] 5/325 q.6 p.r.n. 3. Morphine 2 q.2 mg IV p.r.n. DISCONTINUED MEDICATIONS: All home medications were discontinued. HISTORY OF PRESENT ILLNESS AND HOSPITAL COURSE: A 69-year-old female with history of esophageal varices, cirrhosis with resolved hep C, presented with fever, tachycardia, positive Zarate sign, and elevated bilirubin with jaundice. Chest x-ray showed a possible pneumonia and a CT abdomen and pelvis showed severe cirrhosis and a dilated common bile duct with debris in the biliary tree. The right upper quadrant showed dilated gallbladder and common bile duct. Cholangitis was suspected. Dr. Atkinson was consulted, who performed an ERCP on 06/04 with sphincterotomy. However, no stones were revealed in the biliary tree. Patient was found to be bacteremic with E. coli. After her ERCP, the patient was transitioned to BiPAP and was moved to the ICU. Then, she was tried on high- flow nasal cannula. The patient did not improve during her stay. Her platelets dropped to the 20s. Her INR increased to 3.2, and her bilirubin elevated to 5.3, and her AST and ALT increased to 210 and 77. Meld score increased to 34. She developed decompensated cirrhosis and hepatorenal syndrome. She was continued on antibiotics, and octreotide and midodrine were given with no improvement. Palliative Care was consulted and then the patient decided to become DNAR. The patient reported she was tired and decided to be transitioned to hospice care. All of her antibiotics and other medications were stopped, and she was discharged to Inpatient Hospice. DISPOSITION: [place] DISCHARGE INSTRUCTIONS: 1. Location: Inpatient Hospice. 2. Diet: Regular. 3. Activity: As tolerated. 4. Followup: None needed at this point. Job ID: [id number] MTDD
== END 2019-12-18 20:00 | disposition hospice, inpatient (51) | DRG 871 ==
LOC: ERS 17:31 → 2SW 23:41 → T4-B 12-14 15:56 → CCU 12-15 14:41 → ONC 12-17 15:40
PROVIDERS: ADMIT Family Medicine; ATTEND Family Medicine
PROC: 0F798ZZ Dilation of Common Bile Duct, Via Natural or Artificial Opening Endoscopic (ICD-10-PCS; principal; 2019-12-15)
PROC: BF101ZZ Fluoroscopy of Bile Ducts using Low Osmolar Contrast (ICD-10-PCS; 2019-12-15)
PROC: 5A09357 Assistance with Respiratory Ventilation, Less than 24 Consecutive Hours, Continuous Positive Airway Pressure (ICD-10-PCS; 2019-12-17)
DX: A41.51 Sepsis due to Escherichia coli [E. coli] (principal); J69.0 Pneumonitis due to inhalation of food and vomit; I81 Portal vein thrombosis; Z20.828 Contact with and (suspected) exposure to other viral communicable diseases; Z66 Do not resuscitate; Z51.5 Encounter for palliative care; J96.01 Acute respiratory failure with hypoxia; K76.7 Hepatorenal syndrome; N17.0 Acute kidney failure with tubular necrosis; K72.00 Acute and subacute hepatic failure without coma; R18.8 Other ascites; K76.6 Portal hypertension; I85.10 Secondary esophageal varices without bleeding; E87.2 Acidosis; D68.4 Acquired coagulation factor deficiency; I47.1 Supraventricular tachycardia; K21.9 Gastro-esophageal reflux disease without esophagitis; J45.909 Unspecified asthma, uncomplicated; K74.60 Unspecified cirrhosis of liver; E16.2 Hypoglycemia, unspecified; E80.6 Other disorders of bilirubin metabolism; D69.6 Thrombocytopenia, unspecified; I86.4 Gastric varices; I45.81 Long QT syndrome; I77.1 Stricture of artery; M41.9 Scoliosis, unspecified; D64.9 Anemia, unspecified; K72.10 Chronic hepatic failure without coma; I50.9 Heart failure, unspecified; D75.89 Other specified diseases of blood and blood-forming organs; E87.70 Fluid overload, unspecified; E87.6 Hypokalemia; E83.42 Hypomagnesemia; Z88.1 Allergy status to other antibiotic agents; Z79.899 Other long term (current) drug therapy; Z79.51 Long term (current) use of inhaled steroids; Z86.19 Personal history of other infectious and parasitic diseases; Z98.42 Cataract extraction status, left eye; Z98.41 Cataract extraction status, right eye; Z90.710 Acquired absence of both cervix and uterus
CPT/HCPCS: 36415; 36416; 51701; 71045; 74177; 74330; 76705; 80053; 81003; 81015; 82140; 82248; 82553; 82570; 82728; 82805; 83605; 83615; 83690; 83735; 83880; 84145; 84156; 84300; 84484; 84540; 85025; 85610; 85730; 87040; 87077; 87086; 87149; 87186; 87449; 87635; 87899; 93005; 93010; 93306; 94640; 94660; 96361; 96365; 96366; 96367; 96375; J0282; J0692; J0696; J1160; J1940; J1956; J2001; J2270; J2354; J2405; J2704; J2765; J2930; J3010; J3430; J3475; J3480; J3490; J7050; J7070; J7611; J7620; P9045; P9047; Q9967; U0003